=== PATIENT | male | born 1955 | race Caucasian/White ===

== ENCOUNTER 2020-04-09 13:41 | Outpatient (CLI) | payer MEDICARE, OTHER, SELFPAY ==
--- NOTE | 2020-04-09 13:53 | USCV_ITS ---
Davion Marley Age: 65 Gender: M : 1955 Exam Date: 04/09/2020 14:05 Ordering Phys: Aisha Pagan MD Technologist: Alejandro Betancur Exam Location: [facility] – [place] Indication: LT LEG SWELLING HISTORY: Lower extremity edema. PROCEDURES: Venous duplex imaging was performed in only the left lower extremity. The following venous structures were evaluated: common femoral vein, profunda vein, proximal portion of the greater saphenous vein, superficial femoral vein, and the popliteal vein. In addition, the posterior tibial and peroneal trunk were evaluated. On the left side, the common femoral, superficial femoral, profunda femoral, popliteal, posterior tibial, greater saphenous veins, and the peroneal trunk were identified and interrogated in the standard fashion. These veins were found to be easily compressible with spontaneous blood flow. No evidence of insufficiency or thrombus noted. FINDINGS: Normal 2-D Doppler and augmentation and compressibility throughout the lower extremity venous structures. Additional imaging through the proximal calf veins also reveals no thrombus. Limited evaluation of the greater saphenous vein is patent with no thrombus.. CONCLUSIONS No evidence of left lower extremity DVT. Perico Mayo MD (Electronically Signed) Final Date: 09 April 2020 16:07 S
== END 2020-04-09 13:42 | disposition home or self-care (01) ==
PROVIDERS: Visit Provider Family Medicine
DX: M79.89 Other specified soft tissue disorders (principal)
CPT/HCPCS: 93971

== ENCOUNTER → 2020-04-29 12:59 | Outpatient (BNVA) | payer MEDICARE, OTHER, SELFPAY | PROVIDERS: PCP Family Medicine; Referring Provider Family Medicine; Visit Provider Urology | DX: N30.00 Acute cystitis without hematuria (principal); R97.20 Elevated prostate specific antigen [PSA] | CPT/HCPCS: 81001; 84153 ==

== ENCOUNTER 2021-11-03 11:20 | Emergency (ER) | payer MEDICARE, OTHER, SELFPAY ==
[2021-11-03 12:48] VITALS: BP 202/38; PULSE 79; RESP 16; TEMP 36.8; O2SAT 92
--- NOTE | 2021-11-03 15:01 | USCV_ITS ---
Davion Marley Age: 66 Gender: M : 1955 Exam Date: 11/03/2021 15:12 Ordering Phys: rAcelia Degroot Technologist: KATIUSKA Exam Location: [facility] – [place] Indication: lt leg pain swelling HISTORY: Lower extremity swelling. PROCEDURES: Venous duplex imaging was performed in only the left lower extremity. The following venous structures were evaluated: common femoral vein, profunda vein, proximal portion of the greater saphenous vein, superficial femoral vein, and the popliteal vein. In addition, the posterior tibial and peroneal trunk were evaluated. FINDINGS: Normal 2-D Doppler and augmentation and compressibility throughout the lower extremity venous structures. Additional imaging through the proximal calf veins also reveals no thrombus. Limited evaluation of the greater saphenous vein is patent with no thrombus.. CONCLUSIONS No evidence of left lower extremity DVT. Perico Mayo MD (Electronically Signed) Final Date: 03 November 2021 15:41 S
--- NOTE | 2021-11-03 15:01 | W.ED.EXTPRO ---
Documented by User: MACK Cornejo 11/03/21 17:11 HPI - Extremity Problem General: Chief complaint: Wound/Laceration Stated complaint: PCP SENT OVER FOR IV ANTIBIOTIC Time Seen by Provider: 11/03/21 14:49 Source: patient Mode of arrival: ambulatory Limitations: no limitations History of Present Illness: Patient is a nice 66-year-old male who presents to ED today with complaint of left lower leg swelling and redness. Patient states he began noticing redness about 2 weeks ago. He states he was seen by his PCP Dr. Aisha Pagan and prescribed Keflex on 10/25. He states redness and swelling at that time was just below his knee. He states he has finished antibiotics and redness continues to spread-now affecting his distal thigh. He has not been running any fevers. Patient does have chronic lower extremity edema that is treated with Lasix. Complaint: extremity pain and extremity swelling Onset (ago): week(s) Location: left and lower extremity Radiation: none Relieving factors: nothing Exacerbating factors: nothing Associated symptoms: Reports no associated symptoms; Deny chest pain or fever(s) Review of Systems Const: Denies: fever(s), chills, body aches, fatigue or malaise Card: Reports: edema and swelling of feet/ankles; Denies: chest pain or palpitations Resp: Denies: dyspnea Musc: Reports: extremity pain and extremity swelling Neuro: Denies: numbness in extremities, weakness in extremities or sensory changes [facility] ED PFSH: Medical History (Updated 11/03/21 @ 17:09 by MACK Cornejo) Acute cystitis Elevated PSA Transient related to acute cystitis. Return to normal after treatment April 2020. Surgical History S/P tendon repair Right Leg Family History Family/Other Cancer Social History Smoking and tobacco status: never smoked Alcohol intake: never Adopted: No Caregiver/support person: No Lives independently: No Household members: spouse Marital status: Current occupational status: retired Physical Exam Const: COMMON NORMALS: no acute distress, patient oriented x3, no limitations and alert GENERAL APPEARANCE: cooperative NUTRITIONAL APPEARANCE: obese morbidly obese ORIENTATION/CONSCIOUSNESS: Yes awake, Yes oriented to person, Yes oriented to place and Yes oriented to time HENMT: COMMON NORMALS: normocephalic and atraumatic HEAD & SCALP: normocephalic and atraumatic Resp: COMMON NORMALS: normal respiratory effort and clear to auscultation bilaterally AUSCULTATION: clear to auscultation bilaterally Cardio: COMMON NORMALS: regular rate and regular rhythm RATE: regular rate RHYTHM: regular rhythm Extremity: OTHER: bilateral L>R pitting edema; states L LE is at baseline; patient has cellulitic appearing changes and fairly significant swelling to R LE extending from lower thigh distally; DP/PT pulses intact with normal cap refill Neuro: COMMON NORMALS: patient oriented x3, moves all extremities, no focal motor deficits, no sensory deficits noted and gait normal SENSORIUM/ORIENTATION: Yes alert, Yes oriented to person, Yes oriented to place and Yes oriented to time Skin: NARRATIVE SKIN EXAM: see extremity assessment for pertinent skin findings Course Vital Signs: Vital signs: Vital Signs Temperature 98.3 F 11/03/21 12:48 Pulse Rate 79 11/03/21 12:48 Respiratory Rate 16 11/03/21 12:48 Blood Pressure 202/38 11/03/21 12:48 Pulse Oximetry 92 11/03/21 12:48 MDM - Extremity (Nontraumatic) Medical Decision Making Patient here with a fairly significant cellulitis of his left lower extremity. He has finished a round of Keflex without much improvement. Clinically patient appears well. He is not tachycardic or febrile. He has a normal white count at 8.2. CRP is mildly elevated at 13.3. We currently do not have any hospital beds available. I had Dr. Reyes also evaluate patient and he feels patient is stable to be discharged home with oral clindamycin with strict observation of symptoms and if redness/swelling worsens in any way he needs to return to the ED immediately for hospitalization. Lab Data I reviewed the patient's lab results. : 11/03/21 15:30 11/03/21 15:30 Laboratory Results WBC 8.2 10^3/uL (4.0-10.0) 11/03/21 15:30 RBC 5.13 10^6/uL (4.1-5.3) 11/03/21 15:30 Hgb 15.6 g/dL (11.7-16.6) 11/03/21 15:30 Hct 49.6 % (42.0-52.0) 11/03/21 15:30 MCV 96.7 fl (80-94) H 11/03/21 15:30 MCH 30.4 pg (28.0-34.0) 11/03/21 15: MCHC 31.5 g/dL (30.0-36.0) 11/03/21 15:30 RDW 13.6 % (12.1-15.1) 11/03/21 15:30 Plt Count 204 10^3/cmm (130-400) 11/03/21 15: MPV 9.6 fL (7.4-10.4) 11/03/21 15:30 Neut % (Auto) 59.5 % 11/03/21 15:30 Lymph % (Auto) 23.5 % 11/03/21 15:30 [facility] % (Auto) 14.5 % 11/03/21 15:30 Eos % (Auto) 1.8 % 11/03/21 15:30 Baso % (Auto) 0.2 % 11/03/21 15:30 Neut # (Auto) 4.87 10^3/uL (1.8-7.7) 11/03/21 15:30 Lymph # (Auto) 1.9 10^3/uL (0.8-4.8) 11/03/21 15:30 [facility] # (Auto) 1.2 10^3/uL (0.2-0.9) H 11/03/21 15:30 Eos # (Auto) 0.2 10^3/uL (0.0-0.8) 11/03/21 15:30 Baso # (Auto) 0.0 10^3/uL (0.0-0.1) 11/03/21 15: Nucleated RBC % (auto) 0 % 11/03/21 15: Nucleated RBCs # 0.0 /100WBC 11/03/21 15:30 Sodium 138 mmol/L (136-145) 11/03/21 15:30 Potassium 4.7 mmol/L (3.5-5.1) 11/03/21 15:30 Chloride 98 mmol/L (98-107) 11/03/21 15:30 Carbon Dioxide 29 mmol/L (22-29) 11/03/21 15:30 Anion Gap 15.7 (5-19) 11/03/21 15:30 BUN 15 mg/dL (8-23) 11/03/21 15:30 Creatinine 0.6 mg/dL (0.7-1.2) L 11/03/21 15:30 GFR Calculation 134.0 mL/min (90-130) H 11/03/21 15:30 Glucose 92 mg/dL (65-115) 11/03/21 15:30 Calculated Osmolality 286 mOsm/kg (285-295) 11/03/21 15:30 Calcium 9.5 mg/dL (8.5-10.5) 11/03/21 15:30 Total Bilirubin 0.3 mg/dL (0.15-1.2) 11/03/21 15:30 AST 24 U/L (0-40) 11/03/21 15:30 ALT 21 U/L (0-41) 11/03/21 15:30 Alkaline Phosphatase 78 IU/L (40-130) 11/03/21 15:30 C-Reactive Protein 13.3 mg/L (0.0-4.9) H 11/03/21 15:30 NT-Pro-B Natriuret Pep 30 pg/mL (0-125) 11/03/21 15:30 Total Protein 7.2 g/dL (6.6-8.7) 11/03/21 15:30 Albumin 3.8 g/dL (3.5-5.2) 11/03/21 15:30 Globulin 3.4 g/dL (1.3-4.6) 11/03/21 15:30 Imaging Data US venous L LE: Radiologist's impression: [address] [address] Ultrasound Report Signed Patient: Davion Marley V Unit #: [id number] : 1955 Age/Sex: 66 / M ADM Date: 11/03/21 Loc: ER Room/Bed: Attending Dr: Ordering Provider/Ordering MD: Arcelia Degroot Date of Service: 11/03/21 Procedure(s): [place] [id number] Accession Number(s): [id number] Report Number: [id number] ?Davion Marley ?Age:? ? 66 ? ? Gender: ? ? M ?:? ? 1955 ?Exam Date: ? ? 11/03/2021 15:12 ?Ordering Phys: ? ? Arcelia Degroot? PA ?Technologist:? ? ? CK2 ?[place]am [place]:? ? ? [facility] [place]:? ? [id number] ?Account Number: ? ? ? [id number] ?Indication:? ? ? lt leg pain swelling ?HISTORY: ?Lower extremity swelling. ?PROCEDURES: ?Venous duplex imaging was performed in only the left lower ?extremity. ?The following venous structures were evaluated: common femoral ?vein, profunda vein, proximal portion of the greater saphenous ?vein, superficial femoral vein, and the popliteal vein. ?In addition, the posterior tibial and peroneal trunk were ?evaluated. ?FINDINGS: ?Normal 2-D Doppler and augmentation and compressibility ?throughout the lower extremity venous structures.? Additional ?imaging through the proximal calf veins also reveals no ?thrombus.? Limited evaluation of the greater saphenous vein is ?patent with no thrombus.. ?CONCLUSIONS ?No evidence of left lower extremity DVT. ?Perico Mayo MD ?(Electronically Signed) ?Final Date:? ? ? 03 November 2021 ? 15:41 S Discharge Plan Discharge Patient Disposition: Home Clinical Impression: Cellulitis of left leg Condition: Stable Prescriptions: New clindamycin HCl 300 mg capsule 300 mg PO Q6H 7 Days Qty: 28 0RF No Action tamsulosin 0.4 mg capsule 0.4 mg PO DAILY 0RF furosemide 20 mg tablet 20 mg PO DAILY 0RF potassium chloride 10 mEq capsule, extended release 10 meq PO DAILY 0RF ascorbate calcium (vitamin C) 500 mg tablet 500 mg PO .Q2DAYS 0RF timolol 0.5 % drops 1 drop ophthalmic (eye) BID 0RF latanoprost 0.005 % drops 1 drop ophthalmic (eye) DAILY 0RF Metamucil (sugar) Powder 1 tbsp PO DAILY 0RF Complete Multivitamin Tablet 1 tab PO DAILY 0RF glucosamine-chondroitin 900 mg tablet PO 0RF Discharge Orders: Discharge ED (Routine); Ordered 11/03/21 Ordered By: Arcelia Degroot Referrals: Aisha Pagan MD [Primary Care Provider] - Patient Instructions: Cellulitis (ED) Activity Restrictions/Additional Instructions: As we discussed you need to fill antibiotics immediately and start them today. You need to keep a close eye on the redness and swelling and as we discussed if this worsens in any way you need to immediately return to the emergency department for reevaluation and probable hospitalization. Coding Level of Care Code ED Ordnance Artificer for Chg Fwd Exam Detailed Documented by User: Gregory Reyes DO 11/03/21 21:36 HPI - Extremity Problem General: Chief complaint: Wound/Laceration Stated complaint: PCP SENT OVER FOR IV ANTIBIOTIC Time Seen by Provider: 11/03/21 14:49 PFSH ED PFSH: Medical History (Updated 11/03/21 @ 17:09 by MACK Cornejo) Acute cystitis Elevated PSA Transient related to acute cystitis. Return to normal after treatment April 2020. Surgical History S/P tendon repair Right Leg Family History Family/Other Cancer Social History Smoking and tobacco status: never smoked Alcohol intake: never Adopted: No Caregiver/support person: No Lives independently: No Household members: spouse Marital status: Current occupational status: retired Course Consultations: Consultation #1: I was one of the emergency physicians on duty and this patient was presented to me by the advanced nurse practitioner. We reviewed the history and the current presentation. I also interviewed and evaluated the patient with Arcelia Degroot. The patient clinically looks stable. He has erythema of the left lower extremity which is somewhat serpiginous above the knee. There is no proximal lymphadenopathy or lymphangitis. He has normal range of motion. He does have swelling of the left lower extremity compared with that of the right. He has dry thickened and woody appearing skin of that extremity as well with some cracking and fissuring of the skin. Evaluation performed this evening reveals no evidence of DVT, laboratories are reassuring, his clinical appearance is reassuring. He apparently was on Keflex for period of time with nonresolution. I think he has a component of dependent edema as well as venous insufficiency which is contributed to his current condition. We reviewed treatment options both patient and spouse and given the current pandemic constraints it is reasonable for us to switch his antibiotic coverage and follow his clinical response. I agree with the plan of care as outlined and we also discussed return precautions in detail. Vital Signs: Vital signs: Vital Signs Temperature 98.3 F 11/03/21 12:48 Pulse Rate 79 11/03/21 12:48 Respiratory Rate 16 11/03/21 12:48 Blood Pressure 202/38 11/03/21 12:48 Pulse Oximetry 92 11/03/21 12:48 MDM - Extremity (Nontraumatic) Lab Data : 11/03/21 15:30 11/03/21 15:30 Laboratory Results WBC 8.2 10^3/uL (4.0-10.0) 11/03/21 15:30 RBC 5.13 10^6/uL (4.1-5.3) 11/03/21 15:30 Hgb 15.6 g/dL (11.7-16.6) 11/03/21 15:30 Hct 49.6 % (42.0-52.0) 11/03/21 15:30 MCV 96.7 fl (80-94) H 11/03/21 15:30 MCH 30.4 pg (28.0-34.0) 11/03/21 15:30 MCHC 31.5 g/dL (30.0-36.0) 11/03/21 15:30 RDW 13.6 % (12.1-15.1) 11/03/21 15:30 Plt Count 204 10^3/cmm (130-400) 11/03/21 15:30 MPV 9.6 fL (7.4-10.4) 11/03/21 15:30 Neut % (Auto) 59.5 % 11/03/21 15:30 Lymph % (Auto) 23.5 % 11/03/21 15:30 [facility] % (Auto) 14.5 % 11/03/21 15:30 Eos % (Auto) 1.8 % 11/03/21 15:30 Baso % (Auto) 0.2 % 11/03/21 15:30 Neut # (Auto) 4.87 10^3/uL (1.8-7.7) 11/03/21 15:30 Lymph # (Auto) 1.9 10^3/uL (0.8-4.8) 11/03/21 15:30 [facility] # (Auto) 1.2 10^3/uL (0.2-0.9) H 11/03/21 15:30 Eos # (Auto) 0.2 10^3/uL (0.0-0.8) 11/03/21 15:30 Baso # (Auto) 0.0 10^3/uL (0.0-0.1) 11/03/21 15:30 Nucleated RBC % (auto) 0 % 11/03/21 15:30 Nucleated RBCs # 0.0 /100WBC 11/03/21 15:30 Sodium 138 mmol/L (136-145) 11/03/21 15:30 Potassium 4.7 mmol/L (3.5-5.1) 11/03/21 15:30 Chloride 98 mmol/L (98-107) 11/03/21 15:30 Carbon Dioxide 29 mmol/L (22-29) 11/03/21 15:30 Anion Gap 15.7 (5-19) 11/03/21 15:30 BUN 15 mg/dL (8-23) 11/03/21 15:30 Creatinine 0.6 mg/dL (0.7-1.2) L 11/03/21 15:30 GFR Calculation 134.0 mL/min (90-130) H 11/03/21 15:30 Glucose 92 mg/dL (65-115) 11/03/21 15:30 Calculated Osmolality 286 mOsm/kg (285-295) 11/03/21 15:30 Calcium 9.5 mg/dL (8.5-10.5) 11/03/21 15:30 Total Bilirubin 0.3 mg/dL (0.15-1.2) 11/03/21 15:30 AST 24 U/L (0-40) 11/03/21 15:30 ALT 21 U/L (0-41) 11/03/21 15:30 Alkaline Phosphatase 78 IU/L (40-130) 11/03/21 15:30 C-Reactive Protein 13.3 mg/L (0.0-4.9) H 11/03/21 15:30 NT-Pro-B Natriuret Pep 30 pg/mL (0-125) 11/03/21 15:30 Total Protein 7.2 g/dL (6.6-8.7) 11/03/21 15:30 Albumin 3.8 g/dL (3.5-5.2) 11/03/21 15:30 Globulin 3.4 g/dL (1.3-4.6) 11/03/21 15:30 Discharge Plan Discharge Patient Disposition: Home Clinical Impression: Cellulitis of left leg Condition: Stable Prescriptions: New clindamycin HCl 300 mg capsule 300 mg PO Q6H 7 Days Qty: 28 0RF No Action tamsulosin 0.4 mg capsule 0.4 mg PO DAILY 0RF furosemide 20 mg tablet 20 mg PO DAILY 0RF potassium chloride 10 mEq capsule, extended release 10 meq PO DAILY 0RF ascorbate calcium (vitamin C) 500 mg tablet 500 mg PO .Q2DAYS 0RF timolol 0.5 % drops 1 drop ophthalmic (eye) BID 0RF latanoprost 0.005 % drops 1 drop ophthalmic (eye) DAILY 0RF Metamucil (sugar) Powder 1 tbsp PO DAILY 0RF Complete Multivitamin Tablet 1 tab PO DAILY 0RF glucosamine-chondroitin 900 mg tablet PO 0RF Discharge Orders: Discharge ED (Routine); Ordered 11/03/21 Ordered By: Arcelia Degroot Referrals: Aisha Pagan MD [Primary Care Provider] - Patient Instructions: Cellulitis (ED) Activity Restrictions/Additional Instructions: As we discussed you need to fill antibiotics immediately and start them today. You need to keep a close eye on the redness and swelling and as we discussed if this worsens in any way you need to immediately return to the emergency department for reevaluation and probable hospitalization. Coding Level of Care Code ED Ordnance Artificer for Sylvain Fwbetzy Exam Detailed
[2021-11-03 16:03] LABS: Basophils % 0.2 %; Eosinophils # 0.2 10^3/uL (0.0-0.8); Eosinophils % 1.8 %; Hematocrit 49.6 % (42.0-52.0); Hemoglobin 15.6 g/dL (11.7-16.6); Lymphocytes # 1.9 10^3/uL (0.8-4.8); Lymphocytes % 23.5 %; Mean Corpuscular HGB Conc 31.5 g/dL (30.0-36.0); Mean Corpuscular Hemoglobin 30.4 pg (28.0-34.0); Mean Corpuscular Volume 96.7 fl (80-94); Mean Platelet Volume 9.6 fL (7.4-10.4); Monocytes # 1.2 10^3/uL (0.2-0.9); Monocytes % 14.5 %; Neutrophils # 4.87 10^3/uL (1.8-7.7); Neutrophils % 59.5 %; Nucleated Red Blood Cells % 0 %; Platelet Count 204 10^3/cmm (130-400); Red Blood Count 5.13 10^6/uL (4.1-5.3); Red Cell Distribution Width 13.6 % (12.1-15.1); White Blood Count 8.2 10^3/uL (4.0-10.0)
[2021-11-03 16:54] LABS: Alanine Aminotransferase 21 U/L (0-41); Albumin Level 3.8 g/dL (3.5-5.2); Alkaline Phosphatase 78 IU/L (40-130); Blood Urea Nitrogen 15 mg/dL (8-23); C Reactive Protein 13.3 mg/L (0.0-4.9); Calcium 9.5 mg/dL (8.5-10.5); Carbon Dioxide 29 mmol/L (22-29); Chloride 98 mmol/L (98-107); Globulin 3.4 g/dL (1.3-4.6); Glucose 92 mg/dL (65-115); NT Pro B Type Natriuretic Pept 30 pg/mL (0-125); Osmolality Calculated 286 mOsm/kg (285-295); Sodium 138 mmol/L (136-145); Total Bilirubin 0.3 mg/dL (0.15-1.2); Total Protein 7.2 g/dL (6.6-8.7)
[2021-11-03 16:58] LABS: Anion Gap 15.7 (5-19); Aspartate Amino Transferase 24 U/L (0-40); Potassium 4.7 mmol/L (3.5-5.1)
== END 2021-11-03 17:21 | disposition home or self-care (01) ==
PROVIDERS: Emergency Provider Physician Assistant; PCP Family Medicine
DX: L03.116 Cellulitis of left lower limb (principal); M79.89 Other specified soft tissue disorders
CPT/HCPCS: 80053; 83880; 85025; 86140; 87040; 93971; 99282

== ENCOUNTER 2021-11-07 09:49 | Emergency (ER) | payer MEDICARE, OTHER, SELFPAY ==
[2021-11-07 10:50] VITALS: BP 146/78; PULSE 77; RESP 19; TEMP 37; O2SAT 91; BMI 45.9
--- NOTE | 2021-11-07 12:31 | W.ED.EXTPRO ---
HPI - Extremity Problem General: Chief complaint: Extremity Problem,Nontraumatic Stated complaint: LEFT LEG REDNESS Time Seen by Provider: 11/07/21 12:30 Source: patient Mode of arrival: ambulatory Limitations: no limitations History of Present Illness: 58-year-old male presents emergency room complaining of left leg pain and swelling. He has been seen here last week there is a concern about cellulitis he was switched to clindamycin at that time his white count was normal his CRP was elevated minimally elevated a lot of the changes in the left lower leg were thought to be chronic. He had previously been treated with Keflex he was switched to clindamycin. Has not had any fever sweats chills denies any chest pain. He was previously ultrasounded for DVT in the left leg which was also negative. MD Complaint: extremity swelling Onset (ago): week(s) Pain Consistency: constant Location: left and lower extremity Quality: aching Radiation: none Relieving factors: nothing Exacerbating factors: nothing Associated symptoms: Deny arthralgias, chest pain, fever(s), myalgias, rash, short of breath or other Review of Systems Const: Denies: fever(s) ENMT: Denies: throat pain, ear or mastoid pain, nasal discharge or nasal congestion Card: Denies: chest pain Resp: Denies: dyspnea, productive cough or non-productive cough GI: Denies: abdominal pain, nausea, vomiting, hematemesis, diarrhea or constipation Skin/Breast: Denies: rash PFSH ED PFSH: Medical History Acute cystitis Elevated PSA Transient related to acute cystitis. Return to normal after treatment April 2020. Surgical History S/P tendon repair Right Leg Family History Family/Other Cancer Social History Smoking and tobacco status: never smoked Alcohol intake: never Adopted: No Caregiver/support person: No Lives independently: No Household members: spouse Marital status: Current occupational status: retired Physical Exam Const: COMMON NORMALS: no acute distress GENERAL APPEARANCE: cooperative and comfortable ORIENTATION/CONSCIOUSNESS: Yes awake, Yes oriented to person, Yes oriented to place and Yes oriented to time HENMT: COMMON NORMALS: normocephalic, atraumatic and hearing grossly normal bilaterally HEAD & SCALP: normocephalic and atraumatic Neck/C-Spine: COMMON NORMALS: no JVD Resp: COMMON NORMALS: normal respiratory effort, No retractions, No use of accessory muscles and clear to auscultation bilaterally AUSCULTATION: clear to auscultation bilaterally Cardio: COMMON NORMALS: no JVD, regular rate, regular rhythm and No murmurs present (Cardio) RATE: regular rate RHYTHM: regular rhythm GI: COMMON NORMALS: Soft to palpation and No hepatosplenomegaly present AUSCULTATION: Yes normoactive bowel sounds PALPATION: Yes Soft to palpation, No Tenderness to palpation present (GI), No Guarding due to palpation present (GI) and Yes No hepatosplenomegaly present Extremity: GENERAL: Yes edema OTHER: Redness and erythema of the left lower leg there is some excoriated areas with dry eschars in place no active drainage. The skin is violaceous in color to 3+ pitting edema is not warm to the touch. Neuro: SENSORIUM/ORIENTATION: Yes oriented to person, Yes oriented to place and Yes oriented to time Skin: COMMON NORMALS: no rashes or lesions noted GENERAL SKIN EXAM: no rashes or lesions noted Course Vital Signs: Vital signs: Vital Signs Temperature 98.6 F 11/07/21 10:50 Pulse Rate 73 11/07/21 14:07 Respiratory Rate 163 H 11/07/21 14:07 Blood Pressure 153/88 11/07/21 14:07 Pulse Oximetry 92 11/07/21 14:07 MDM - Extremity (Nontraumatic) Medical Decision Making CRP is decreased by half since he was last seen. His white count is normal. There is no evidence of active infection at this point is a recurrent antibiotic he is taking seems to be working well would complete the course of antibiotic follow-up with his primary care doctor in the next 2 to 3 days he like to return to work probably show least a couple more days of antibiotics as any worsening problem return to the emergency room Medical Records I reviewed the patient's medical records. Lab Data I reviewed the patient's lab results. : 11/07/21 12:54 11/07/21 12:54 Laboratory Results WBC 8.7 10^3/uL (4.0-10.0) 11/07/21 12:54 RBC 5.31 10^6/uL (4.1-5.3) H 11/07/21 12:54 Hgb 15.7 g/dL (11.7-16.6) 11/07/21 12:54 Hct 49.9 % (42.0-52.0) 11/07/21 12:54 MCV 94.0 fl (80-94) 11/07/21 12:54 MCH 29.6 pg (28.0-34.0) 11/07/21 12:54 MCHC 31.5 g/dL (30.0-36.0) 11/07/21 12:54 RDW 13.4 % (12.1-15.1) 11/07/21 12:54 Plt Count 215 10^3/cmm (130-400) 11/07/21 12:54 MPV 9.6 fL (7.4-10.4) 11/07/21 12:54 Neut % (Auto) 63.2 % 11/07/21 12:54 Lymph % (Auto) 20.3 % 11/07/21 12:54 [place] % (Auto) 13.9 % 11/07/21 12:54 Eos % (Auto) 1.7 % 11/07/21 12:54 Baso % (Auto) 0.7 % 11/07/21 12:54 Neut # (Auto) 5.47 10^3/uL (1.8-7.7) 11/07/21 12:54 Lymph # (Auto) 1.8 10^3/uL (0.8-4.8) 11/07/21 12:54 [place] # (Auto) 1.2 10^3/uL (0.2-0.9) H 11/07/21 12:54 Eos # (Auto) 0.2 10^3/uL (0.0-0.8) 11/07/21 12:54 Baso # (Auto) 0.1 10^3/uL (0.0-0.1) 11/07/21 12:54 Nucleated RBC % (auto) 0 % 11/07/21 12:54 Nucleated RBCs # 0.0 /100WBC 11/07/21 12:54 Sodium 137 mmol/L (136-145) 11/07/21 12:54 Potassium 4.5 mmol/L (3.5-5.1) 11/07/21 12:54 Chloride 100 mmol/L (98-107) 11/07/21 12:54 Carbon Dioxide 27 mmol/L (22-29) 11/07/21 12:54 Anion Gap 14.5 (5-19) 11/07/21 12:54 BUN 17 mg/dL (8-23) 11/07/21 12:54 Creatinine 0.7 mg/dL (0.7-1.2) 11/07/21 12:54 GFR Calculation 112.1 mL/min (90-130) 11/07/21 12:54 Glucose 93 mg/dL (65-115) 11/07/21 12:54 Calculated Osmolality 285 mOsm/kg (285-295) 11/07/21 12:54 Calcium 9.3 mg/dL (8.5-10.5) 11/07/21 12:54 Total Bilirubin 0.3 mg/dL (0.15-1.2) 11/07/21 12:54 AST 19 U/L (0-40) 11/07/21 12:54 ALT 21 U/L (0-41) 11/07/21 12:54 Alkaline Phosphatase 92 IU/L (40-130) 11/07/21 12:54 C-Reactive Protein 6.1 mg/L (0.0-4.9) H 11/07/21 12:54 Total Protein 7.4 g/dL (6.6-8.7) 11/07/21 12:54 Albumin 3.9 g/dL (3.5-5.2) 11/07/21 12:54 Globulin 3.5 g/dL (1.3-4.6) 11/07/21 12:54 Discharge Plan Discharge Patient Disposition: Home Clinical Impression: Cellulitis of left leg Condition: Stable Prescriptions: No Action tamsulosin 0.4 mg capsule 0.4 mg PO DAILY 0RF furosemide 20 mg tablet 20 mg PO DAILY 0RF potassium chloride 10 mEq capsule, extended release 10 meq PO DAILY 0RF ascorbate calcium (vitamin C) 500 mg tablet 500 mg PO .Q2DAYS 0RF timolol 0.5 % drops 1 drop ophthalmic (eye) BID 0RF latanoprost 0.005 % drops 1 drop ophthalmic (eye) DAILY 0RF Metamucil (sugar) Powder 1 tbsp PO DAILY 0RF Complete Multivitamin Tablet 1 tab PO DAILY 0RF glucosamine-chondroitin 900 mg tablet PO 0RF clindamycin HCl 300 mg capsule 300 mg PO Q6H 7 Days Qty: 28 0RF Discharge Orders: Discharge ED (Routine); Ordered 11/07/21 Ordered By: Duc Carranza Referrals: Aisha Pagan MD [Primary Care Provider] - Discharge Diet: Usual diet Discharge Activity: Resume usual activity Patient Instructions: Opioid Safety Activity Restrictions/Additional Instructions: Continue previously prescribed antibiotic follow-up with your primary care doctor. Coding Level of Care Code ED Battery Service Technician for Sylvain Denson
[2021-11-07 13:09] LABS: Basophils # 0.1 10^3/uL (0.0-0.1); Basophils % 0.7 %; Eosinophils # 0.2 10^3/uL (0.0-0.8); Eosinophils % 1.7 %; Hematocrit 49.9 % (42.0-52.0); Hemoglobin 15.7 g/dL (11.7-16.6); Lymphocytes # 1.8 10^3/uL (0.8-4.8); Lymphocytes % 20.3 %; Mean Corpuscular HGB Conc 31.5 g/dL (30.0-36.0); Mean Corpuscular Hemoglobin 29.6 pg (28.0-34.0); Mean Platelet Volume 9.6 fL (7.4-10.4); Monocytes # 1.2 10^3/uL (0.2-0.9); Monocytes % 13.9 %; Neutrophils # 5.47 10^3/uL (1.8-7.7); Neutrophils % 63.2 %; Nucleated Red Blood Cells % 0 %; Platelet Count 215 10^3/cmm (130-400); Red Blood Count 5.31 10^6/uL (4.1-5.3); Red Cell Distribution Width 13.4 % (12.1-15.1); White Blood Count 8.7 10^3/uL (4.0-10.0)
[2021-11-07 13:39] LABS: Alanine Aminotransferase 21 U/L (0-41); Albumin Level 3.9 g/dL (3.5-5.2); Alkaline Phosphatase 92 IU/L (40-130); Anion Gap 14.5 (5-19); Aspartate Amino Transferase 19 U/L (0-40); Blood Urea Nitrogen 17 mg/dL (8-23); C Reactive Protein 6.1 mg/L (0.0-4.9); Calcium 9.3 mg/dL (8.5-10.5); Carbon Dioxide 27 mmol/L (22-29); Chloride 100 mmol/L (98-107); Globulin 3.5 g/dL (1.3-4.6); Glomerular Filtration Rate 112.1 mL/min (90-130); Glucose 93 mg/dL (65-115); Osmolality Calculated 285 mOsm/kg (285-295); Potassium 4.5 mmol/L (3.5-5.1); Sodium 137 mmol/L (136-145); Total Bilirubin 0.3 mg/dL (0.15-1.2); Total Protein 7.4 g/dL (6.6-8.7)
[2021-11-07 14:07] VITALS: BP 153/88; PULSE 73; RESP 163; O2SAT 92
== END 2021-11-07 14:07 | disposition home or self-care (01) ==
PROVIDERS: Physician Assistant; Emergency Provider Family Medicine; PCP Family Medicine
DX: L03.116 Cellulitis of left lower limb (principal); Z79.2 Long term (current) use of antibiotics
CPT/HCPCS: 80053; 85025; 86140; 87040; 99281

== ENCOUNTER 2021-11-30 07:55 | Outpatient (RCR) | payer MEDICARE, OTHER, SELFPAY | END 2021-12-05 23:59 | disposition home or self-care (01) | LOC: SPT 07:55 | PROVIDERS: PCP Family Medicine; Referring Provider Family Medicine; Visit Provider Family Medicine | DX: I87.8 Other specified disorders of veins (principal); E66.01 Morbid (severe) obesity due to excess calories; L03.119 Cellulitis of unspecified part of limb | CPT/HCPCS: 29581; 97140; 97161 ==

== ENCOUNTER 2021-12-06 06:00 | Outpatient (RCR) | payer MEDICARE, OTHER, SELFPAY | END 2021-12-28 23:59 | disposition home or self-care (01) | LOC: SPT 06:00 | PROVIDERS: PCP Family Medicine; Referring Provider Family Medicine; Visit Provider Family Medicine | DX: I87.8 Other specified disorders of veins (principal) | CPT/HCPCS: 29581; 97140 ==

== ENCOUNTER 2022-04-07 18:48 | Emergency (ER) | payer OTHER, MEDICARE, SELFPAY ==
[2022-04-07 18:58] VITALS: BP 139/85; PULSE 77; RESP 18; TEMP 37.3; O2SAT 91; BMI 41.8
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
[2022-04-07] MEDS: HYDROcodone-acetaminophen 7.5-325 mg Tablet 1 TAB PO (22:27)
[2022-04-07 23:15] VITALS: BP 133/96; PULSE 73; RESP 19; TEMP 37.1; O2SAT 92
[2022-04-07] MEDS: tetanus-dipt-pertussis 0.5 mL SDV IM (23:19)
[2022-04-07] MEDS: neomycin-poly-bacitracin oint 0.9 gm Pkt 1 APPLIC TOPICAL (23:21)
[2022-04-07 23:29] VITALS: BP 133/96; PULSE 73; RESP 19; TEMP 37.1; O2SAT 92
== END 2022-04-07 23:31 | disposition home or self-care (01) ==
PROVIDERS: Emergency Provider Physician Assistant; PCP Family Medicine
DX: S51.812A Laceration without foreign body of left forearm, initial encounter (principal); V89.2XXA Person injured in unspecified motor-vehicle accident, traffic, initial encounter; Z23 Encounter for immunization
CPT/HCPCS: 12001; 73090; 90471; 90715; 99283

== ENCOUNTER 2022-04-09 07:04 | Inpatient (IN) | payer MEDICARE, SELFPAY ==
[2022-04-09] VITALS (102 sets, daily range): BP systolic 61–163; BP diastolic 39–95; PULSE 0–114; RESP 12–40; TEMP 36.6–37.7; O2SAT 84–99; BMI 45.9
--- NOTE | 2022-04-09 07:16 | CTR_ITS ---
PROCEDURE INFORMATION: Exam: CTA Chest With Contrast Exam date and time: 04/09/2022 8:17 AM Age: 67 years old Clinical indication: Other: Unresponsive TECHNIQUE: Imaging protocol: Computed tomographic angiography of the chest with contrast. 3D rendering (Not supervised by radiologist): MIP and/or 3D reconstructed images were created by the technologist. Radiation optimization: All CT scans at this facility use at least one of these dose optimization techniques: automated exposure control; mA and/or kV adjustment per patient size (includes targeted exams where dose is matched to clinical indication); or iterative reconstruction. Contrast material: OMNI 350; Contrast volume: 95 ml; Contrast route: INTRA-ARTICULAR (ARTHROGRAM); COMPARISON: CR (CHEST, ) 04/09/2022 7:49 AM RADIATION DOSE METRICS: Total DLP (mGy-cm): 2237.58 FINDINGS: Tubes, catheters and devices: A nasogastric tube is present with the tip in the stomach. An endotracheal tube is present in satisfactory position. Pulmonary arteries: Normal. No pulmonary emboli. Aorta: There is mild calcification of the aorta. There is no thoracic aortic aneurysm. Lungs: There is bilateral atelectasis especially in the lower lobes and on the left side. There are multiple benign calcified granulomas in the left lung. Pleural spaces: Unremarkable. No pneumothorax. No pleural effusion. Heart: The heart is not enlarged. There is calcification of the coronary arteries. Lymph nodes: Benign calcified lymph nodes are present in the mediastinum. Bones/joints: Chronic degenerative changes are present in the spine. Soft tissues: Unremarkable. PROCEDURE INFORMATION: Exam: CT Abdomen And Pelvis With Contrast Exam date and time: 04/09/2022 8:17 AM Age: 67 years old Clinical indication: Other: Unresponsive TECHNIQUE: Imaging protocol: Computed tomography of the abdomen and pelvis with contrast. Radiation optimization: All CT scans at this facility use at least one of these dose optimization techniques: automated exposure control; mA and/or kV adjustment per patient size (includes targeted exams where dose is matched to clinical indication); or iterative reconstruction. Contrast material: OMNI 350; Contrast volume: 95 ml; Contrast route: INTRA-ARTICULAR (ARTHROGRAM); COMPARISON: CR (CHEST, ) 04/09/2022 7:49 AM RADIATION DOSE METRICS: Total DLP (mGy-cm): 2237.58 FINDINGS: Tubes, catheters and devices: A nasogastric tube is present in the stomach. Liver: Normal. No mass. Gallbladder and bile ducts: Cholelithiasis. Normal bile ducts. Pancreas: Normal. No ductal dilation. Spleen: Normal. No splenomegaly. Adrenal glands: Normal. No mass. Kidneys and ureters: Normal. No hydronephrosis. Stomach and bowel: Unremarkable. No obstruction. No mucosal thickening. Appendix: No evidence of appendicitis. Intraperitoneal space: Unremarkable. No free air. No significant fluid collection. Vasculature: Unremarkable. No abdominal aortic aneurysm. Lymph nodes: Unremarkable. No enlarged lymph nodes. Urinary bladder: The urinary bladder is collapsed around a Norton catheter. Reproductive: Unremarkable as visualized. Bones/joints: Chronic degenerative changes are present in the spine. Soft tissues: Unremarkable. CT/CT angio chest w abd pel w con IMPRESSION: 1. No evidence of pulmonary embolus or aortic aneurysm/dissection. 2. Bilateral atelectasis greater on the left side. 3. Coronary artery calcification. 4. Benign calcified granulomas disease. IMPRESSION: 1. No acute abnormality. 2. Cholelithiasis.
--- NOTE | 2022-04-09 07:16 | CTR_ITS ---
PROCEDURE INFORMATION: Exam: CT Head Without Contrast Exam date and time: 04/09/2022 8:08 AM Age: 67 years old Clinical indication: Unresponsive TECHNIQUE: Imaging protocol: Computed tomography of the head without contrast. Radiation optimization: All CT scans at this facility use at least one of these dose optimization techniques: automated exposure control; mA and/or kV adjustment per patient size (includes targeted exams where dose is matched to clinical indication); or iterative reconstruction. COMPARISON: No relevant prior studies available. RADIATION DOSE METRICS: Total DLP (mGy-cm): 1380.49 FINDINGS: Brain: No acute intracranial hemorrhage. No mass, mass effect or midline shift. There is mild patchy subcortical and periventricular hypodensity, most commonly associated with small vessel ischemic disease of indeterminate age. The posterior fossa is grossly unremarkable; however, it is partially obscurred by beam hardening artifact. Cerebral ventricles: The ventricles are normal in configuration. Paranasal sinuses: There is mild mucosal thickening in the ethmoid, sphenoid and maxillary sinuses. Mastoid air cells: No mastoid effusion. Bones/joints: No acute fracture is seen. Soft tissues: Mild frontal scalp soft tissue swelling. Vasculature: There is no evidence of acute large vessel infarct. Orbits: The visualized orbits are unremarkable. CT/CT head wo con* [id number] IMPRESSION: 1. Mild presumed small vessel ischemic disease of indeterminate age. 2. No acute intracranial abnormality.
--- NOTE | 2022-04-09 07:16 | XRR_ITS ---
PROCEDURE INFORMATION: Exam: XR Chest Exam date and time: 04/09/2022 7:49 AM Age: 67 years old Clinical indication: Device placement; Other: Ett and ng placement TECHNIQUE: Imaging protocol: Radiologic exam of the chest. Views: 1 view. COMPARISON: No relevant prior studies available. FINDINGS: Tubes, catheters and devices: A nasogastric tube is present with the tip projecting in the stomach. An endotracheal tube is present with its tip 4 cm above the cooper. Lungs: There is bilateral atelectasis greater on the left side. Pleural spaces: Unremarkable. No pleural effusion. No pneumothorax. Heart/Mediastinum: Unremarkable. No cardiomegaly. Bones/joints: Unremarkable. XR/XR chest 1V portable [id number] IMPRESSION: 1. Satisfactory position of the endotracheal tube and nasogastric tube. 2. Poor inspiration with bilateral atelectasis.
--- NOTE | 2022-04-09 07:16 | CTR_ITS ---
PROCEDURE INFORMATION: Exam: CT Cervical Spine Without Contrast Exam date and time: 04/09/2022 8:11 AM Age: 67 years old Clinical indication: Other: Unresponsive TECHNIQUE: Imaging protocol: Computed tomography of the cervical spine without contrast. Radiation optimization: All CT scans at this facility use at least one of these dose optimization techniques: automated exposure control; mA and/or kV adjustment per patient size (includes targeted exams where dose is matched to clinical indication); or iterative reconstruction. COMPARISON: CT head wo con* [id number] 04/09/2022 8:08 AM RADIATION DOSE METRICS: Total DLP (mGy-cm): 1058.09 FINDINGS: The cervical lordosis is maintained. No prevertebral soft tissue swelling is seen. Gavg-ev-wdkaigvc degenerative disc disease in the cervical spine. No acute fracture is identified. The atlantoaxial interval and craniocervical junction are maintained. Small, scattered cervical lymph nodes are noted. CT/CT cervical spin wo con* [id number] IMPRESSION: 1. No acute cervical fracture. 2. Kerq-vy-nehfyvhw degenerative disc disease in the cervical spine. 3. Please see dedicated CTA of the chest, abdomen and pelvis for associated findings.
--- NOTE | 2022-04-09 07:17 | ECG_ITS ---
[facility] Test Date: 2022-04-09 Pat Name: Davion Marley Department: Room: ICU04 Gender: Male Control Room Supervisor: : [id number] Requested By: Bro Zaldivar Order Number: [id number] Anali MD: Wally Elizondo M.D. Measurements Intervals [place] Rate: 129 P: 56 ND: 162 QRS: 8 QRSD: 118 T: 16 QT: 327 QTc: 479 Interpretive Statements SINUS TACHYCARDIA WITH OCCASIONAL VENTRICULAR PREMATURE COMPLEXES MODERATE INTRAVENTRICULAR CONDUCTION DELAY [110+ ms QRS DURATION] ABNORMAL RHYTHM ECG No previous ECG available for comparison Electronically Signed On 04-10-2022 8:38:15 CDT by Wally Elizondo M.D. [email or web address]
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
[2022-04-09 07:27] LABS: Basophils % 0.3 %; Eosinophils % 0.1 %; Hematocrit 59.2 % (42.0-52.0); Lymphocytes # 2.2 10^3/uL (0.8-4.8); Lymphocytes % 18.4 %; Mean Corpuscular HGB Conc 30.4 g/dL (30.0-36.0); Mean Corpuscular Hemoglobin 29.9 pg (28.0-34.0); Mean Corpuscular Volume 98.2 fl (80-94); Mean Platelet Volume 10.3 fL (7.4-10.4); Monocytes % 8.3 %; Neutrophils # 8.59 10^3/uL (1.8-7.7); Neutrophils % 72.3 %; Nucleated Red Blood Cells % 0 %; Platelet Count 198 10^3/cmm (130-400); Red Blood Count 6.03 10^6/uL (4.1-5.3); Red Cell Distribution Width 14.4 % (12.1-15.1); White Blood Count 11.9 10^3/uL (4.0-10.0)
[2022-04-09] MEDS: propofol 1,000 MG/100 ML INJ 8.7 MG IV (07:27)
[2022-04-09 07:38] LABS: ABG PH Result 7.24 (7.35-7.45); Arterial Blood Gas Hematocrit 53.1 % (42-52); Base Excess ABG 1.1 mmol/L (-2.0-2.0); Blood Gas Allen Test Pos; Blood Gas Sample Type Arterial; HCO3 ABG 31.5 mmol/L (22-26); Ionized Calcium Level - ABG 1.2 mmol/L (1.1-1.4); Methemoglobin 0.7 % (0.4-1.5); Oxygen Saturation ABG 98.8; Potassium Level - ABG 4.5 mmol/L (3.5-5.0); Total Hemoglobin 17.3 g/dL (14-18)
[2022-04-09 07:39] LABS: ABG PCO2 73.4 mmHg (35-45)
[2022-04-09 07:40] LABS: Blood Gas Drawn By CAK; Blood Gas Sample Site LB; Blood Gas Tidal Volume 550; Blood Gas Vent Mode AC; Oxygen Device VENT
[2022-04-09 07:41] LABS: Blood Gas Operator Identificat CAK
[2022-04-09 07:56] LABS: Partial Thromboplastin Time 32.9 SECONDS (23.9-36.7)
[2022-04-09 07:59] LABS: Lactate (Lactic Acid level) 3.1 mmol/L (0.5-2.2)
[2022-04-09 08:17] LABS: SARS Covid-2 Antigen Negative (Negative)
[2022-04-09 08:18] LABS: Troponin(5th) Baseline 45 ng/L (0-15)
[2022-04-09 08:25] LABS: Alanine Aminotransferase 25 U/L (0-41); Albumin Level 4.4 g/dL (3.5-5.2); Alkaline Phosphatase 95 IU/L (40-130); Anion Gap 17.1 (5-19); Aspartate Amino Transferase 28 U/L (0-40); Blood Urea Nitrogen 21 mg/dL (8-23); Carbon Dioxide 30 mmol/L (22-29); Chloride 97 mmol/L (98-107); Free T4 Free Thyroxine 1.07 ng/dL (0.82-1.77); Globulin 4.1 g/dL (1.3-4.6); Glomerular Filtration Rate 83.7 mL/min (90-130); Glucose 222 mg/dL (65-115); Lipase 27 U/L (13-60); Magnesium 2.3 mg/dL (1.7-2.3); NT Pro B Type Natriuretic Pept 180 pg/mL (0-125); Osmolality Calculated 298 mOsm/kg (285-295); Potassium 5.1 mmol/L (3.5-5.1); Sodium 139 mmol/L (136-145); Thyroid Stimulating Hormone 6.62 uIU/mL (0.27-4.20); Total Bilirubin 0.3 mg/dL (0.15-1.2); Total Protein 8.5 g/dL (6.6-8.7)
[2022-04-09] MEDS: iohexol 350 mg/mL 100 mL Btl IV ×2 (08:28→11:29)
--- NOTE | 2022-04-09 08:47 | PC.NURSE ---
Pt arrived to ER in respiratory distress on non-rebreather. Pt was given 20mg etomidate at 0712 and 70mg rocuronium. Pt was intubated at 0713 - @ [facility]. Staff present: Christine Jordan RN, August Goldstein, RN, Myra De Jesus, RN, Uzair Avendano RN, Gigi Jalloh RT, Dr Zaldivar
[2022-04-09 08:53] LABS: Acetaminophen < 5.0 ug/mL (10-30); Alcohol Level < 10 mg/dL (0-10); Salicylate < 0.3 mg/dL (3-10)
[2022-04-09] MEDS: rocuronium 10 mg/mL INJ 5mL 50 MG (08:55)
[2022-04-09] MEDS: sodium chloride 0.9% 500 ML 999 ML IV (08:56)
--- NOTE | 2022-04-09 09:17 | ECG_ITS ---
[facility] Test Date: 2022-04-09 Pat Name: Davion Marley Department: Room: ICU04 Gender: Male Stock Holder: : [id number] Requested By: Bro Zaldivar Order Number: [id number] Anali MD: Wally Elizondo M.D. Measurements Intervals [place] Rate: 72 P: 59 MO: 164 QRS: -3 QRSD: 105 T: -14 QT: 385 QTc: 422 Interpretive Statements SINUS RHYTHM NONSPECIFIC T-WAVE ABNORMALITY Compared to ECG 04/09/2022 07:22:13 T-wave abnormality now present Sinus tachycardia no longer present Ventricular premature complex(es) no longer present Intraventricular conduction delay no longer present Electronically Signed On 04-10-2022 8:47:04 CDT by Wally Elizondo M.D. [email or web address]
[2022-04-09 09:31] LABS: Estmated Average Glucose 123; Hemoglobin A1C 5.9 % (4.0-6.0)
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
--- NOTE | 2022-04-09 09:38 | USCV_ITS ---
Davion Marley Age: 67 Gender: M : 1955 Exam Date: 04/09/2022 10:22 Ordering Phys: Issac [place] MD Technologist: Alejandro Betancur [place]am [place] [facility] [place] Indication: cva BP: 85 / 42 HR: 68 Rhythm: Sinus Technical Quality: Suboptimal MEASUREMENTS (Male / Female) Normal Values 2D ECHO LV Diastolic Diameter PLAX 4.7 cm 4.2 - 5.9 / 3.9 - 5.3 cm LV Systolic Diameter PLAX 3.2 cm IVS Diastolic Thickness 1.0 cm 0.6 - 1.0 / 0.6 - 0.9 cm IVS Systolic Thickness 1.8 cm LVPW Diastolic Thickness 1.6 cm 0.6 - 1.0 / 0.6 - 0.9 cm LVPW Systolic Thickness 1.8 cm LVOT Diameter 2.6 cm LV Ejection Fraction 2D Teich 61.8 % LV Ejection Fraction MOD 2C 58.4 % LV Ejection Fraction 2C AL 57.0 % LA Diameter 4.5 cm M-MODE Aortic Annulus Diameter 4.1 cm LA Ao Ratio MM 1.2 MV E Point Septal Separation 1.8 cm DOPPLER AV Peak Velocity 104.0 cm/s LVOT Peak Velocity 74.0 cm/s AV Area Cont Eq vti 4.8 cm squared AV Area Cont Eq pk 3.8 cm squared MV Area PHT 5.0 cm squared Mitral E to A Ratio 1.2 MV E' Velocity 30.5 cm/s Mitral E to MV E' Ratio 7.1 Mitral E to LV E' Lateral Ratio 8.4 Mitral E to LV E' Septal Ratio 6.1 TR Peak Velocity 250.3 cm/s TR Peak Gradient 25.1 mmHg TV Peak E Velocity 82.0 cm/s Right Atrial Pressure 3.0 mmHg Pulmonary Artery Systolic Pressu 28.1 mmHg FINDINGS Left Ventricle Normal left ventricular size, systolic function and wall thickness, with no regional wall motion abnormalities. Left ventricular ejection fraction is estimated at 60 %. Grade I/IV diastolic dysfunction (abnormal relaxation filling pattern), normal to mildly elevated filling pressures. Right Ventricle Normal right ventricular size and systolic function. Normal right ventricular systolic pressure. Right Atrium The right atrium is normal in size. Left Atrium The left atrium is normal in size. Mitral Valve Mitral valve not well visualized. No mitral valve stenosis. Aortic Valve Aortic valve not well visualized. No aortic valve stenosis. No aortic valve regurgitation. Tricuspid Valve Tricuspid valve not well visualized. Pulmonic Valve Pulmonic valve not well visualized. Pericardium Normal pericardium without effusion. Aorta Normal ascending aorta dimension. IVC Inferior vena cava not visualized. CONCLUSIONS Normal left ventricular size, systolic function and wall thickness, with no regional wall motion abnormalities. Left ventricular ejection fraction is estimated at 60 %. Grade I/IV diastolic dysfunction (abnormal relaxation filling pattern), normal to mildly elevated filling pressures. There are no prior echocardiogram studies to compare. Dr. Wally Elizondo MD (Electronically Signed) Final Date: 10 April 2022 08:21 S
[2022-04-09] MEDS: FUROsemide 10 mg/mL SDV 4mL 40 MG IVP ×2 (09:42→18:06)
--- NOTE | 2022-04-09 10:02 | XRR_ITS ---
PROCEDURE INFORMATION: Exam: XR Chest Exam date and time: 04/09/2022 10:04 AM Age: 67 years old Clinical indication: Central line placement. TECHNIQUE: Imaging protocol: Radiologic exam of the chest. Views: 1 view. COMPARISON: CR (CHEST, ) 04/09/2022 7:49 AM FINDINGS: Tubes, catheters and devices: Endotracheal tube with tip approximately 3.9 cm above the cooper. Left subclavian central venous access device with tip in the SVC. Nasogastric tube projects into the abdomen. Its tip is not included on the current study. Lungs: Consolidation in the medial and inferior chest, bilaterally, is approximately unchanged. Pleural spaces: No pleural effusion. No pneumothorax. Heart/Mediastinum: The cardiac silhouette is approximately unchanged. No gross evidence of pneumomediastinum. Bones/joints: No gross fracture. XR/XR chest 1V portable [id number] IMPRESSION: 1. Endotracheal tube with tip approximately 3.9 cm above the cooper. 2. Left subclavian central venous access device with tip in the SVC. 3. Nasogastric tube projects into the abdomen. Its tip is not included on the current study. 4. Consolidation in the medial and inferior chest, bilaterally, is approximately unchanged.
--- NOTE | 2022-04-09 11:22 | USR_ITS ---
PROCEDURE INFORMATION: Exam: US Duplex Lower Extremity Veins, Bilateral Exam date and time: 04/09/2022 12:11 PM Age: 67 years old Clinical indication: Screening exam. CVA. DVT. TECHNIQUE: Imaging protocol: Real-time Duplex ultrasound of the bilateral extremities with 2-D hinton scale, color Doppler flow and spectral waveform analysis with image documentation. Complete exam focused on the bilateral lower extremity veins. COMPARISON: CT angio chest w abd pel w con 04/09/2022 8:17 AM FINDINGS: The common femoral, femoral and popliteal veins are patent. There is appropriate compression. Doppler interogation reveals venous blood flow. US/[place] [id number] IMPRESSION: No evidence of deep venous thrombosis.
[2022-04-09] MEDS: pantoprazole 40 mg SDV IVP ×2 (11:56→22:58)
[2022-04-09] MEDS: enoxaparin 40 mg/0.4 mL Syringe SUBCUT (11:56)
[2022-04-09] MEDS: ipratropium-albuterol 3 mL Neb INHALATION ×4 (11:58→23:09)
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
[2022-04-09] MEDS: aspirin 81 mg EC Tablet PO (12:27)
[2022-04-09] MEDS: heparin drip 25,000 UNIT/500 ML PREMIX 29 UNIT IV (12:33)
[2022-04-09 12:57] LABS: ABG PCO2 41.5 mmHg (35-45); ABG PH Result 7.48 (7.35-7.45); Alveolar-Arterial Oxygen Gradi 24.8 mmHg (5-10); Arterial Blood Gas Hematocrit 49.4 % (42-52); Base Excess ABG 6.6 mmol/L (-2.0-2.0); Blood Gas Allen Test Pos; Blood Gas Operator Identificat CAK; Blood Gas Sample Site Radial, left; Blood Gas Sample Type Arterial; Blood Gas Tidal Volume 0.55; Carboxyhemoglobin 0.8 %THgb (0.4-20.1); HCO3 ABG 30.9 mmol/L (22-26); HGB O2 Sat 97.5 % (95-100); Ionized Calcium Level - ABG 1.2 mmol/L (1.1-1.4); Methemoglobin 0.9 % (0.4-1.5); Oxygen Device VENT; Oxygen Saturation ABG 99.2; Potassium Level - ABG 4.1 mmol/L (3.5-5.0); Total Hemoglobin 16.1 g/dL (14-18)
--- NOTE | 2022-04-09 13:17 | ECG_ITS ---
[facility] Test Date: 2022-04-09 Pat Name: Davion Marley Department: Room: 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 Measurements Intervals [place] Rate: 68 P: 56 ID: [id number] QRS: -10 QRSD: 105 T: -9 QT: 418 QTc: 445 Interpretive Statements SINUS RHYTHM Compared to ECG 04/09/2022 13:01:47 T-wave abnormality no longer present Electronically Signed On 04-10-2022 8:47:28 CDT by Wally Elizondo M.D. [email or web address]
[2022-04-09 13:48] LABS: Platelet Count 176 10^3/cmm (130-400)
[2022-04-09 14:28] LABS: Amphetamines Screen Urine Negative (Negative); Barbiturates Screen Urine Negative (Negative); Benzodiazepines Screen Urine Negative (Negative); Cocaine Screen Urine Negative (Negative); Opiate Screen Urine Negative (Negative); PCP Screen Urine Negative (Negative); THC Screen Urine Negative (Negative)
[2022-04-09 14:29] LABS: Bacteria Urine 1+ /hpf; Bilirubin Urine Neg (Negative); Blood Urine 2+ (Negative); Glucose Urine UA Norm (Normal); Ketones Urine Negative (Negative); Leukocyte Esterase Urine Negative (Negative); Nitrate Urine Negative (Negative); Protein Urine 3+ (Negative); Specific Gravity, Urine 1.025 (1.005-1.030); Squamous Epithelial Cell Urine RARE /hpf (0-5); Urine Appearance Hazy (CLEAR); Urine Color Yellow (Yellow); Urobilinogen Urine Norm (Negative); pH Urine 5 (5-7)
[2022-04-09 14:30] LABS: Add Urine Culture? No; Amorphous Sediment Urine 2+ /hpf; Coarse Granular Casts Urine 15-25 /lpf
[2022-04-09 18:52] LABS: Partial Thromboplastin Time 92.3 SECONDS (23.9-36.7)
[2022-04-09] MEDS: atorvastatin 40 mg Tablet PO (22:41)
[2022-04-10] VITALS (102 sets, daily range): BP systolic 108–176; BP diastolic 61–98; PULSE 63–106; RESP 14–50; TEMP 37.2–38.1; O2SAT 85–99
[2022-04-10] MEDS: propofol 1,000 MG/100 ML INJ 4.35 MG IV (00:49)
[2022-04-10 01:55] LABS: Basophils # 0.1 10^3/uL (0.0-0.1); Basophils % 0.4 %; Eosinophils % 0.3 %; Hematocrit 44.2 % (42.0-52.0); Hemoglobin 14.7 g/dL (11.7-16.6); Lymphocytes # 1.3 10^3/uL (0.8-4.8); Lymphocytes % 10.6 %; Mean Corpuscular HGB Conc 33.3 g/dL (30.0-36.0); Mean Corpuscular Hemoglobin 30.4 pg (28.0-34.0); Mean Corpuscular Volume 91.3 fl (80-94); Mean Platelet Volume 10.2 fL (7.4-10.4); Monocytes # 1.7 10^3/uL (0.2-0.9); Monocytes % 14.5 %; Neutrophils # 8.75 10^3/uL (1.8-7.7); Neutrophils % 73.9 %; Nucleated Red Blood Cells % 0 %; Platelet Count 154 10^3/cmm (130-400); Red Blood Count 4.84 10^6/uL (4.1-5.3); Red Cell Distribution Width 14.2 % (12.1-15.1); White Blood Count 11.9 10^3/uL (4.0-10.0)
[2022-04-10 02:15] LABS: Ammonia 39 umol/L (16-60); Lactic Sepsis W/Reflex 1.2 mmol/L (0.5-2.2); Partial Thromboplastin Time 88.6 SECONDS (23.9-36.7)
[2022-04-10 02:26] LABS: NT Pro B Type Natriuretic Pept 275 pg/mL (0-125); Procalcitonin 0.08 ng/mL (0-0.5)
[2022-04-10 02:28] LABS: INR 1.11 (0.8-1.2)
[2022-04-10 02:37] LABS: Alanine Aminotransferase 24 U/L (0-41); Alkaline Phosphatase 56 IU/L (40-130); Anion Gap 15.7 (5-19); Aspartate Amino Transferase 35 U/L (0-40); Blood Urea Nitrogen 22 mg/dL (8-23); C Reactive Protein 21.2 mg/L (0.0-4.9); Carbon Dioxide 26 mmol/L (22-29); Chloride 101 mmol/L (98-107); Cholesterol 120 mg/dL (0-200); Globulin 3.1 g/dL (1.3-4.6); Glomerular Filtration Rate 95.8 mL/min (90-130); Glucose 107 mg/dL (65-115); HDL Cholesterol 50 mg/dL (60-100); LDL Cholesterol Calculated 56 mg/dL (50-129); LDL HDL Ratio 1.12 RATIO (0.00-3.22); Magnesium 1.9 mg/dL (1.7-2.3); Osmolality Calculated 292 mOsm/kg (285-295); Phosphorus 3.5 mg/dL (2.5-4.5); Potassium 3.7 mmol/L (3.5-5.1); Sodium 139 mmol/L (136-145); Total Bilirubin 0.7 mg/dL (0.15-1.2); Total Protein 6.1 g/dL (6.6-8.7); Triglycerides 68 mg/dL (0-150)
[2022-04-10 02:39] LABS: Creatine Phosphokinase 1182 U/L (39-308)
[2022-04-10] MEDS: ipratropium-albuterol 3 mL Neb INHALATION ×6 (03:17→23:39)
[2022-04-10 03:28] LABS: ABG PCO2 47.9 mmHg (35-45); ABG PH Result 7.45 (7.35-7.45); Arterial Blood Gas Hematocrit 46.2 % (42-52); Blood Gas Allen Test Pos; Blood Gas Sample Site Radial, right; Blood Gas Sample Type Arterial; Blood Gas Tidal Volume 0.55; HCO3 ABG 33.4 mmol/L (22-26); Oxygen Device VENT; PO2 ABG 69.8 mmHg (80.0-100.0)
[2022-04-10] MEDS: heparin drip 25,000 UNIT/500 ML PREMIX 26 UNIT IV (04:18)
[2022-04-10] MEDS: propofol 1,000 MG/100 ML INJ 26.1 MG IV ×2 (06:13→09:32)
--- NOTE | 2022-04-10 07:00 | XRR_ITS ---
PROCEDURE INFORMATION: Exam: XR Chest Exam date and time: 04/10/2022 4:46 AM Age: 67 years old Clinical indication: Cardiovascular condition or disease; Other: Icu follow up; Additional info: SOB TECHNIQUE: Imaging protocol: Radiologic exam of the chest. Views: 1 view. COMPARISON: CR XR chest 1V portable [id number] 04/09/2022 10:04 AM FINDINGS: Tubes, catheters and devices: Endotracheal tube approximately 3 cm above the cooper. An enteric tube is noted extending below the level of the diaphragm and out of the field of view. Left-sided subclavian central venous line with the distal tip at the cavoatrial junction. Lungs: Low lung volumes. Bibasilar consolidation possibly atelectasis, similar to prior exam. Pleural spaces: Questionable small left-sided pleural effusion. Heart/Mediastinum: The cardiomediastinal silhouette is within normal limits. Bones/joints: Unremarkable. XR/XR chest 1V portable [id number] IMPRESSION: 1. No significant change from prior exam. 2. Bibasilar consolidation possibly atelectasis. 3. Questionable small left-sided pleural effusion.
[2022-04-10 08:05] LABS: Glucose Point of Care 81 mg/dL (70-110)
[2022-04-10] MEDS: magnesium sulfate premix 2 GM/50 ML PIGGYBACK IV (08:33)
[2022-04-10] MEDS: lidocaine 1% 5 ML in potassium chloride premix 100 ML 50 ML IV (08:35)
[2022-04-10] MEDS: FUROsemide 10 mg/mL SDV 4mL 40 MG IVP ×3 (08:35→17:09)
[2022-04-10] MEDS: tamsulosin 0.4 mg Capsule PO (08:36)
[2022-04-10] MEDS: aspirin 81 mg EC Tablet PO (08:36)
[2022-04-10] MEDS: metOLazone 5 MG Tablet PO (08:36)
--- NOTE | 2022-04-10 09:07 | PC.NURSE ---
Patient family brought patient medication from home. Timolol maleate ophthalmic solution and Latanoprost ophthalmic solution. medications placed in pixys.
[2022-04-10 09:16] LABS: Partial Thromboplastin Time 88.6 SECONDS (23.9-36.7)
--- NOTE | 2022-04-10 09:52 | PC.CHAP ---
Pastoral Care Encounter/Spiritual Assessment Type of Contact [] Declined silverer visit [] Patient/Family/Request visit [] Outpatient visit [] Follow-up visit [] Physician referral [] Code/Alert [x] Routine visit [] Staff referral [] Actively dying [x] Patient sleeping [x] Family support [] [] Out of room [] Palliative care [] [] Receiving care in room [] Pre-surgical visit [] Trauma [] Long length of stay [x] ICU visit [x] Other: vent.. possible removal today.. several family members present.. some stayed the night Relational/Emotional Strength [] Patient feels connected with others/family/visitors/staff [] Distress [] Loneliness/isolation [] Abandonment Spirituality of Patient [] Person of Priscila [] Attends Nondenominational of their Priscila [] Believes in Prayer [] Reads Bible or Jainism materials [] There are Spiritual issues to be addressed Post Doctoral Fellow Interventions [x] Prayer [] Active listening [] Non-anxious presence [] Spiritual/emotional support [] Crisis/trauma care [] Spiritual counseling [] Bereavement support [] Provided bereavement packet [] Provided Bible/devotional materials [] Provided toy/stuffed animal, coloring book to patient or family member [] Provided Communion [] Anointing/[place] [] Salvation [x] Completed spiritual assessment [] Other: Impact on Illness or Injury [] Angry [] Fearful [] Anxious [] Often cries [] Exhaustion [] Unable to work [] Unable to attend hoahaoism [] Unable to walk/stand [] Unable to read [] Unable to drive [] Unable to eat/drink [] Unable to sleep [] Unable to be with family [] Patient intubated [] Other: Summary Time spent with patient
--- NOTE | 2022-04-10 11:24 | P.PN_ITS ---
Subjective Subjective: Patient was seen this morning, family members at bedside, did have a low-grade fever overnight, according to his , he did awaken during. During the night, she helped calm him down, remains normotensive, off pressors, remains on sedation, 40% FiO2 Vitals/I&O/Wt Last Vital Signs Temp 99.3 F 04/10/22 07:30 Pulse 70 04/10/22 11:01 Resp 18 04/10/22 11:01 BP 129/68 04/10/22 09:00 Pulse Ox 94 04/10/22 11:01 04/09/22 04/10/22 04/10/22 22:59 06:59 14:59 Intake Total 332.647 / 1151.925 689.317 / 1841.242 466.890 / 466.890 Output Total 850 / 850 1100 / 1950 2100 / 2100 Balance -517.353 / 301.925 -410.683 / -108.758 -1633.110 / -1633.110 Weight last 48 hrs Weight 149.374 kg Physical Exam Const: COMMON NORMALS: no acute distress OTHER: Remains intubated, sedated, on mechanical ventilation HENMT: COMMON NORMALS: normocephalic HEAD & SCALP: normocephalic Neck/C-Spine: COMMON NORMALS: no JVD Resp: COMMON NORMALS: normal respiratory effort, No retractions, No use of accessory muscles and clear to auscultation bilaterally AUSCULTATION: clear to auscultation bilaterally Cardio: COMMON NORMALS: no JVD, regular rate, regular rhythm, S1 normal heart sound present and S2 normal heart sound present RATE: regular rate RHYTHM: regular rhythm HEART SOUNDS: S1 normal heart sound present and S2 normal heart sound present GI: COMMON NORMALS: Normal to inspection, nondistended, normoactive bowel sounds present, Soft to palpation, non-tender and No hepatosplenomegaly present PALPATION: Yes Soft to palpation and Yes No hepatosplenomegaly present Extremity: COMMON NORMALS: no calf tenderness and no pedal edema Urinary Catheter Management: Norton: Cath Placed During This Visit: yes Reason for Continuing Indwelling Catheter: Accurate Measurement of Urinary Output in Critically Ill Patients Urinary Catheter Date of Insertion: 04/09/22 Urinary Catheter Time of Insertion: 07:16 Data : 04/10/22 01:40 04/10/22 01:40 Micro: Microbiology 04/09/22 07:40 Gram Stain - Final Sputum - Endotracheal Tube Aspirate Sputum Culture - Preliminary 04/09/22 07:40 Blood Culture - Preliminary Blood NEGATIVE TO DATE 04/09/22 07:34 Blood Culture - Preliminary Blood NEGATIVE TO DATE 04/09/22 10:38 MRSA Culture - Final Nose A&P Assessment and plan (1) Acute respiratory failure with hypoxia: Status: Acute (2) Altered mental status: Status: Acute (3) Hypercarbia: Status: Acute (4) Non-ST elevation [place] (NSTEMI): Status: Acute (5) Bilateral atelectasis: Status: Acute Plan Acute hypoxic respiratory failure, possibly fluid overload With altered mental status possible hypercarbia, possible CVA With evidence of fluid overload With NSTEMI Evidence of fluid overload History of MENDEZ, now with hypercarbia Elevated lactic acid 1.2 -CT angiogram does not show any evidence of pulmonary embolism -CT head no acute stroke, no acute findings -CTA head and neck, no carotid artery dissection -CT of the chest does show bilateral atelectasis Plan -Plan on spontaneous breathing trial today, and extubation today -1 dose Lasix with metolazone -Continue intubation, sedation, minimize FiO2, minimize tidal volume -Fentanyl, Versed, propofol for sedation -Lasix daily dosing -Heparin drip -Cardiac echo ?Normal left ventricular size, systolic function and wall ?thickness, with no regional wall motion abnormalities. Left ?ventricular ejection fraction is estimated at 60 %. Grade I/IV ?diastolic dysfunction (abnormal relaxation filling pattern), ?normal to mildly elevated filling pressures. ?There are no prior echocardiogram studies to compare. -Aspirin, statin, neurochecks -Continue Levophed, maintain MAP greater than 65 -Norton catheter placed monitor urine output, monitor creatinine monitor electrolytes -Telemetry monitoring -Primaxin for antibiotic coverage -Full code -Heparin drip for DVT prophylaxis -Protonix for GI prophylaxis Attestations Medical Necessity Statement*: Patient requires hospitalization for acute hypoxic respiratory failure, NSTEMI, fluid overload, critical care time spent 45 minutes Coding Level of Care Code Acute Plaster Pattern Caster for [facility] Diagnoses Acute respiratory failure with hypoxia J96.01 Altered mental status R41.82 Hypercarbia R06.89 Non-ST elevation [place] (NSTEMI) I21.4 Bilateral atelectasis J98.11
[2022-04-10] MEDS: pantoprazole 40 mg SDV IVP ×2 (11:55→23:56)
[2022-04-10 13:03] LABS: Glucose Point of Care 84 mg/dL (70-110)
[2022-04-10 13:58] LABS: Partial Thromboplastin Time 73.6 SECONDS (23.9-36.7)
[2022-04-10] MEDS: guaiFENesin 600 mg Tablet 1200 MG PO (15:02)
[2022-04-10] MEDS: enoxaparin 40 mg/0.4 mL Syringe SUBCUT (15:02)
[2022-04-10] MEDS: acetylcysteine 200 mg/mL SDV 4 mL 100 MG INHALATION ×3 (15:27→23:39)
[2022-04-10 18:20] LABS: Glucose Point of Care 133 mg/dL (70-110)
[2022-04-10 19:35] LABS: Partial Thromboplastin Time 38.7 SECONDS (23.9-36.7)
[2022-04-10] MEDS: sodium chloride 3.5% neb 4 mL Neb INHALATION (20:05)
[2022-04-10] MEDS: atorvastatin 40 mg Tablet PO (20:15)
[2022-04-10] MEDS: LATANOPROST 0.005% 1 EACH EYEAFF (20:15)
--- NOTE | 2022-04-10 20:34 | PC.NURSE ---
Addendum entered by Mayank Heck RN 04/11/22 06:13: I witnessed waste of both fentanyl and versed Original Note: Waste Fentanyl & Versed Drips Wasted Fentanyl 223.75 mls and Versed 67.8 mls with FELISHA Talley.
[2022-04-11] VITALS (75 sets, daily range): BP systolic 121–182; BP diastolic 71–110; PULSE 70–99; RESP 15–33; TEMP 37–37.2; O2SAT 86–97
[2022-04-11] MEDS: guaiFENesin 600 mg Tablet 1200 MG PO ×2 (02:08→14:15)
[2022-04-11] MEDS: acetylcysteine 200 mg/mL SDV 4 mL 100 MG INHALATION ×5 (03:35→23:32)
[2022-04-11] MEDS: ipratropium-albuterol 3 mL Neb INHALATION ×6 (03:35→23:32)
--- NOTE | 2022-04-11 05:11 | PC.NURSE ---
Shift Summary Patient had an uneventful shift remains alert/oriented x4 on BIPAP 50% FiO2. No wounds or skin issues noted at this time. Norton catheter drained 2300 mls of urine overnight. No complaints of pain overnight.
--- NOTE | 2022-04-11 06:00 | XRR_ITS ---
PROCEDURE INFORMATION: Exam: XR Chest Exam date and time: 04/11/2022 4:58 AM Age: 67 years old Clinical indication: Shortness of breath; Additional info: SOB TECHNIQUE: Imaging protocol: Radiologic exam of the chest. Views: 1 view. Total images: 301 COMPARISON: CR (CHEST, ) 04/10/2022 4:46 AM FINDINGS: Tubes, catheters and devices: There has been interval removal of the endotracheal tube. There has been interval removal of the enteric tube. A left subclavian central venous catheter is present, with its tip overlying the region of the superior vena cava and unchanged from prior exam. Lungs: Bilateral pulmonary opacities are again noted with the left-sided opacities showing interval improvement. Pleural spaces: Unremarkable. No pleural effusion. No pneumothorax. Heart/Mediastinum: Low lung volumes are present, accentuating cardiac size and pulmonary markings. Bones/joints: Osseous structures are unchanged from the prior exam. XR/XR chest 1V portable [id number] IMPRESSION: 1. Low lung volumes are present, accentuating cardiac size and pulmonary markings. 2. Bilateral pulmonary opacities are again noted with the left-sided opacities showing interval improvement.
[2022-04-11 06:21] LABS: Basophils % 0.1 %; Hematocrit 49.2 % (42.0-52.0); Lymphocytes # 0.9 10^3/uL (0.8-4.8); Lymphocytes % 6.3 %; Mean Corpuscular HGB Conc 32.5 g/dL (30.0-36.0); Mean Corpuscular Hemoglobin 29.5 pg (28.0-34.0); Mean Corpuscular Volume 90.8 fl (80-94); Mean Platelet Volume 10.6 fL (7.4-10.4); Monocytes # 1.9 10^3/uL (0.2-0.9); Monocytes % 12.7 %; Neutrophils # 11.95 10^3/uL (1.8-7.7); Neutrophils % 80.3 %; Nucleated Red Blood Cells % 0 %; Platelet Count 184 10^3/cmm (130-400); Red Blood Count 5.42 10^6/uL (4.1-5.3); Red Cell Distribution Width 13.9 % (12.1-15.1); White Blood Count 14.9 10^3/uL (4.0-10.0)
[2022-04-11 06:40] LABS: INR 1.14 (0.8-1.2)
[2022-04-11 06:45] LABS: Lactate (Lactic Acid level) 1.9 mmol/L (0.5-2.2)
[2022-04-11 07:01] LABS: NT Pro B Type Natriuretic Pept 233 pg/mL (0-125)
[2022-04-11 07:04] LABS: ABG PCO2 47.2 mmHg (35-45); ABG PH Result 7.52 (7.35-7.45); Arterial Blood Gas Hematocrit 50.8 % (42-52); Blood Gas Allen Test Pos; Blood Gas Operator Identificat JB; Blood Gas Sample Site Brachial, right; Blood Gas Sample Type Arterial; HCO3 ABG 38.1 mmol/L (22-26); Oxygen Device BIPAP; PO2 ABG 92.1 mmHg (80.0-100.0)
[2022-04-11 07:12] LABS: Alanine Aminotransferase 37 U/L (0-41); Albumin Level 3.5 g/dL (3.5-5.2); Alkaline Phosphatase 57 IU/L (40-130); Anion Gap 14.1 (5-19); Aspartate Amino Transferase 93 U/L (0-40); Blood Urea Nitrogen 23 mg/dL (8-23); C Reactive Protein 117.7 mg/L (0.0-4.9); Calcium 8.8 mg/dL (8.5-10.5); Carbon Dioxide 35 mmol/L (22-29); Chloride 92 mmol/L (98-107); Globulin 3.4 g/dL (1.3-4.6); Glomerular Filtration Rate 111.8 mL/min (90-130); Glucose 108 mg/dL (65-115); Magnesium 1.9 mg/dL (1.7-2.3); Osmolality Calculated 290 mOsm/kg (285-295); Potassium 3.1 mmol/L (3.5-5.1); Sodium 138 mmol/L (136-145); Total Protein 6.9 g/dL (6.6-8.7)
[2022-04-11 07:29] LABS: Creatine Phosphokinase 2734 U/L (39-308)
[2022-04-11] MEDS: sodium chloride 3.5% neb 4 mL Neb INHALATION ×2 (07:49→20:33)
[2022-04-11 07:51] LABS: Glucose Point of Care 116 mg/dL (70-110)
[2022-04-11] MEDS: FUROsemide 10 mg/mL SDV 4mL 40 MG IVP ×2 (08:00→17:29)
[2022-04-11] MEDS: metOLazone 5 MG Tablet PO (08:00)
[2022-04-11] MEDS: lidocaine 1% 5 ML in potassium chloride premix 100 ML 25 ML IV (08:01)
[2022-04-11] MEDS: tamsulosin 0.4 mg Capsule PO (08:56)
[2022-04-11] MEDS: aspirin 81 mg EC Tablet PO (08:56)
[2022-04-11] MEDS: spironolactone 25 mg Tablet PO (10:17)
[2022-04-11] MEDS: pantoprazole 40 mg SDV IVP ×2 (11:10→23:34)
--- NOTE | 2022-04-11 12:08 | PC.CHAP ---
Pastoral Care Encounter/Spiritual Assessment Type of Contact [] Declined chemical technician visit [] Patient/Family/Request visit [] Outpatient visit [] Follow-up visit [] Physician referral [] Code/Alert [x] Routine visit [] Staff referral [] Actively dying [] Patient sleeping x] Family support [] [] Out of room [] Palliative care [] [] Receiving care in room [] Pre-surgical visit [] Trauma [] Long length of stay [x] ICU visit [x] Other: off vent.. eyes open and having conversation Relational/Emotional Strength [] Patient feels connected with others/family/visitors/staff [] Distress [] Loneliness/isolation [] Abandonment Spirituality of Patient [] Person of Priscila [] Attends Zoroastrianism of their Priscila [] Believes in Prayer [] Reads Bible or Presybeterian materials [] There are Spiritual issues to be addressed Receiving And Processing Supervisor Interventions [x] Prayer [x] Active listening [x] Non-anxious presence [x] Spiritual/emotional support [] Crisis/trauma care [] Spiritual counseling [] Bereavement support [] Provided bereavement packet [] Provided Bible/devotional materials [] Provided toy/stuffed animal, coloring book to patient or family member [] Provided Communion [] Anointing/[place] [] Salvation [x] Completed spiritual assessment [] Other: Impact on Illness or Injury [] Angry [] Fearful [] Anxious [] Often cries [] Exhaustion [] Unable to work [] Unable to attend religious [] Unable to walk/stand [] Unable to read [] Unable to drive [] Unable to eat/drink [] Unable to sleep [] Unable to be with family [] Patient intubated [] Other: Summary so excited in process of healing.... more to come Time spent with patient 10 min
[2022-04-11] MEDS: enoxaparin 40 mg/0.4 mL Syringe SUBCUT (14:15)
--- NOTE | 2022-04-11 14:24 | PM.PN ---
Subjective Subjective: Patient was seen this morning, currently on heated high flow, he tells me he is feeling a lot better, no shortness of breath, no pain, successfully extubated yesterday, he had high flow, used BiPAP overnight alert oriented x3, following all commands Vitals/I&O/Wt Last Vital Signs Temp 98.9 F 04/11/22 07:30 Pulse 86 04/11/22 12:30 Resp 22 H 04/11/22 12:30 BP 152/75 04/11/22 11:45 Pulse Ox 93 04/11/22 12:30 04/10/22 04/11/22 04/11/22 22:59 06:59 14:59 Intake Total 580 / 1210.750 680 / 6098.624 3201 / 1095 Output Total 2000 / 6800 2300 / 9100 1400 / 1400 Balance -1420 / -5589.250 -1620 / -7209.250 -305 / -305 Physical Exam Const: COMMON NORMALS: no acute distress and patient oriented x3 Resp: COMMON NORMALS: normal respiratory effort, No retractions, No use of accessory muscles and clear to auscultation bilaterally AUSCULTATION: clear to auscultation bilaterally Cardio: COMMON NORMALS: regular rate, regular rhythm, S1 normal heart sound present and S2 normal heart sound present RATE: regular rate RHYTHM: regular rhythm HEART SOUNDS: S1 normal heart sound present and S2 normal heart sound present GI: COMMON NORMALS: Normal to inspection, nondistended, normoactive bowel sounds present, Soft to palpation and non-tender PALPATION: Yes Soft to palpation Extremity: NARRATIVE EXTREMITY EXAM: 1+ pitting edema bilateral extremity Neuro: COMMON NORMALS: patient oriented x3 Psych: COMMON NORMALS: mental status grossly normal Urinary Catheter Management: Norton: Cath Placed During This Visit: yes Reason for Continuing Indwelling Catheter: Accurate Measurement of Urinary Output in Critically Ill Patients Urinary Catheter Date of Insertion: 04/09/22 Urinary Catheter Time of Insertion: 07:16 Data : 04/11/22 05:15 04/11/22 05:15 Micro: Microbiology 04/09/22 07:40 Gram Stain - Final Sputum - Endotracheal Tube Aspirate Sputum Culture - Final A&P Assessment and plan (1) Acute respiratory failure with hypoxia: Status: Acute (2) Altered mental status: Status: Acute (3) Hypercarbia: Status: Acute (4) Non-ST elevation MD (NSTEMI): Status: Acute (5) Bilateral atelectasis: Status: Acute Plan Acute hypoxic respiratory failure, possibly fluid overload With altered mental status possible hypercarbia, possible CVA With evidence of fluid overload With NSTEMI Evidence of fluid overload History of MENDEZ, now with hypercarbia Likely obesity hypoventilation syndrome Elevated lactic acid 1.2, resolved -CT angiogram does not show any evidence of pulmonary embolism -CT head no acute stroke, no acute findings -CTA head and neck, no carotid artery dissection -CT of the chest does show bilateral atelectasis -Extubated to heated high flow 04/10/2022 Plan -Continue heated high flow, BiPAP during the night - diuresed over 7 L -Continue Lasix therapy, daily dosing with metolazone -Cardiac echo ?Normal left ventricular size, systolic function and wall ?thickness, with no regional wall motion abnormalities. Left ?ventricular ejection fraction is estimated at 60 %. Grade I/IV ?diastolic dysfunction (abnormal relaxation filling pattern), ?normal to mildly elevated filling pressures. ?There are no prior echocardiogram studies to compare. -Aspirin, statin, neurochecks -Continue Levophed, maintain MAP greater than 65 -Norton catheter placed monitor urine output, monitor creatinine monitor electrolytes -Telemetry monitoring -Pulmonary toilet, chest vest therapy, Mucomyst, hypertonic saline -Primaxin for antibiotic coverage -Low-dose prednisone -Full code -Lovenox for DVT prophylaxis -Protonix for GI prophylaxis Attestations Medical Necessity Statement*: Patient requires hospitalization for acute hypoxic respiratory failure, critical care time spent 25 minutes Coding Level of Care Code Acute Civil Engineering Project Manager for [facility] Fwd Exam Detailed Diagnoses Acute respiratory failure with hypoxia J96.01 Altered mental status R41.82 Hypercarbia R06.89 Non-ST elevation MD (NSTEMI) I21.4 Bilateral atelectasis J98.11
[2022-04-11 14:29] LABS: Glucose Point of Care 105 mg/dL (70-110)
[2022-04-11] MEDS: predniSONE 20 mg Tablet 40 MG PO (15:23)
[2022-04-11] MEDS: potassium chloride ER 20 mEq Tablet PO (17:29)
--- NOTE | 2022-04-11 18:57 | PC.NURSE ---
Patient transferred to room 255-1 at 1820, accompanied by 1 RN and 1RT. Patient resting in bed with belongings and family at bedside. Patient chart and home medications left with staff at front desk representative.
[2022-04-11 20:53] LABS: Glucose Point of Care 135 mg/dL (70-110)
[2022-04-11] MEDS: atorvastatin 40 mg Tablet PO (21:43)
[2022-04-11] MEDS: LATANOPROST 0.005% 1 EACH EYEAFF (22:15)
[2022-04-12] VITALS (16 sets, daily range): BP systolic 126–178; BP diastolic 72–95; PULSE 68–105; RESP 18–20; TEMP 36.3–37.2; O2SAT 91–98
[2022-04-12] MEDS: guaiFENesin 600 mg Tablet 1200 MG PO ×2 (02:13→15:45)
[2022-04-12 03:46] LABS: Basophils % 0.2 %; Eosinophils % 0.1 %; Hematocrit 49.2 % (42.0-52.0); Hemoglobin 16.2 g/dL (11.7-16.6); Lymphocytes % 7.7 %; Mean Corpuscular HGB Conc 32.9 g/dL (30.0-36.0); Mean Corpuscular Hemoglobin 29.7 pg (28.0-34.0); Mean Corpuscular Volume 90.1 fl (80-94); Mean Platelet Volume 10.5 fL (7.4-10.4); Monocytes # 1.6 10^3/uL (0.2-0.9); Monocytes % 12.3 %; Neutrophils # 10.41 10^3/uL (1.8-7.7); Neutrophils % 79.1 %; Nucleated Red Blood Cells % 0 %; Platelet Count 176 10^3/cmm (130-400); Red Blood Count 5.46 10^6/uL (4.1-5.3); Red Cell Distribution Width 13.9 % (12.1-15.1); White Blood Count 13.1 10^3/uL (4.0-10.0)
[2022-04-12 03:57] LABS: INR 1.05 (0.8-1.2)
[2022-04-12 04:08] LABS: Alanine Aminotransferase 42 U/L (0-41); Albumin Level 3.4 g/dL (3.5-5.2); Alkaline Phosphatase 57 IU/L (40-130); Anion Gap 11.4 (5-19); Aspartate Amino Transferase 96 U/L (0-40); Blood Urea Nitrogen 26 mg/dL (8-23); C Reactive Protein 74.1 mg/L (0.0-4.9); Calcium 8.8 mg/dL (8.5-10.5); Carbon Dioxide 36 mmol/L (22-29); Chloride 93 mmol/L (98-107); Globulin 3.7 g/dL (1.3-4.6); Glomerular Filtration Rate 95.8 mL/min (90-130); Glucose 118 mg/dL (65-115); Osmolality Calculated 290 mOsm/kg (285-295); Phosphorus 4.1 mg/dL (2.5-4.5); Potassium 3.4 mmol/L (3.5-5.1); Sodium 137 mmol/L (136-145); Total Bilirubin 1.1 mg/dL (0.15-1.2); Total Protein 7.1 g/dL (6.6-8.7)
[2022-04-12 04:19] LABS: NT Pro B Type Natriuretic Pept 98 pg/mL (0-125)
[2022-04-12] MEDS: acetylcysteine 200 mg/mL SDV 4 mL 100 MG INHALATION ×5 (04:26→21:39)
[2022-04-12] MEDS: ipratropium-albuterol 3 mL Neb INHALATION ×5 (04:26→21:39)
[2022-04-12 04:33] LABS: Creatine Phosphokinase 1490 U/L (39-308)
[2022-04-12 04:40] LABS: ABG PCO2 50.5 mmHg (35-45); ABG PH Result 7.49 (7.35-7.45); Arterial Blood Gas Hematocrit 53.3 % (42-52); Base Excess ABG 12.9 mmol/L (-2.0-2.0); Blood Gas Allen Test Pos; Blood Gas Sample Site Radial, right; Blood Gas Sample Type Arterial; HCO3 ABG 38.8 mmol/L (22-26); Oxygen Device BIPAP; PO2 ABG 71.6 mmHg (80.0-100.0)
[2022-04-12 06:56] LABS: Glucose Point of Care 184 mg/dL (70-110)
[2022-04-12] MEDS: sodium chloride 3.5% neb 4 mL Neb INHALATION ×2 (07:22→21:41)
[2022-04-12] MEDS: lidocaine 1% 5 ML in potassium chloride premix 100 ML 25 ML IV (09:06)
[2022-04-12] MEDS: metOLazone 5 MG Tablet PO (09:13)
[2022-04-12] MEDS: aspirin 81 mg EC Tablet PO (09:13)
[2022-04-12] MEDS: tamsulosin 0.4 mg Capsule PO (09:13)
[2022-04-12] MEDS: FUROsemide 10 mg/mL SDV 4mL 40 MG IVP ×2 (09:13→22:45)
[2022-04-12] MEDS: spironolactone 25 mg Tablet PO (09:13)
[2022-04-12] MEDS: predniSONE 20 mg Tablet 40 MG PO (09:13)
[2022-04-12 11:16] LABS: Glucose Point of Care 167 mg/dL (70-110)
--- NOTE | 2022-04-12 12:24 | P.PN_ITS ---
Subjective Subjective: Patient was seen this morning currently on 10 L, he tells me he feels a lot better, currently on 10 L, he is able to stand, not able to ambulate yet Vitals/I&O/Wt Last Vital Signs Temp 97.4 F L 04/12/22 11:26 Pulse 105 H 04/12/22 11:26 Resp 18 04/12/22 11:26 BP 153/80 04/12/22 11:26 Pulse Ox 91 04/12/22 11:26 04/11/22 04/12/22 04/12/22 22:59 06:59 14:59 Intake Total 350 / 1445 100 / 1545 580 / 580 Output Total 3200 / 4600 550 / 5150 1100 / 1100 Balance -2850 / -3155 -450 / -3605 -520 / -520 Physical Exam Const: COMMON NORMALS: no acute distress and patient oriented x3 Resp: COMMON NORMALS: normal respiratory effort, No retractions, No use of accessory muscles and clear to auscultation bilaterally AUSCULTATION: clear to auscultation bilaterally Cardio: COMMON NORMALS: regular rate, regular rhythm, S1 normal heart sound present and S2 normal heart sound present RATE: regular rate RHYTHM: regular rhythm HEART SOUNDS: S1 normal heart sound present and S2 normal heart sound present GI: COMMON NORMALS: Normal to inspection, nondistended, normoactive bowel sounds present, Soft to palpation, non-tender and No hepatosplenomegaly present PALPATION: Yes Soft to palpation and Yes No hepatosplenomegaly present Extremity: NARRATIVE EXTREMITY EXAM: 1+ pitting edema Neuro: COMMON NORMALS: patient oriented x3 Psych: COMMON NORMALS: mental status grossly normal Urinary Catheter Management: Norton: Cath Placed During This Visit: yes Reason for Continuing Indwelling Catheter: Acute Urinary Retention or Obstruction Urinary Catheter Date of Insertion: 04/09/22 Urinary Catheter Time of Insertion: 07:16 Data : 04/12/22 03:33 04/12/22 03:33 Micro: Microbiology 04/09/22 07:40 Gram Stain - Final Sputum - Endotracheal Tube Aspirate Sputum Culture - Final A&P Assessment and plan (1) Acute respiratory failure with hypoxia: Status: Acute (2) Altered mental status: Status: Acute (3) Hypercarbia: Status: Acute (4) Non-ST elevation TN (NSTEMI): Status: Acute (5) Bilateral atelectasis: Status: Acute Plan Acute hypoxic respiratory failure, secondary to fluid overload With altered mental status possible hypercarbia With evidence of fluid overload With NSTEMI Evidence of fluid overload History of MENDEZ, now with hypercarbia Likely obesity hypoventilation syndrome Elevated lactic acid 1.2, resolved -CT angiogram does not show any evidence of pulmonary embolism -CT head no acute stroke, no acute findings -CTA head and neck, no carotid artery dissection -CT of the chest does show bilateral atelectasis -Extubated to heated high flow 04/10/2022 Plan -Continue heated high flow, BiPAP during the night - diuresed over 11 L -Continue Lasix therapy, daily dosing with metolazone -Cardiac echo ?Normal left ventricular size, systolic function and wall ?thickness, with no regional wall motion abnormalities. Left ?ventricular ejection fraction is estimated at 60 %. Grade I/IV ?diastolic dysfunction (abnormal relaxation filling pattern), ?normal to mildly elevated filling pressures. ?There are no prior echocardiogram studies to compare. -Aspirin, statin, neurochecks -Continue Levophed, maintain MAP greater than 65 -Norton catheter placed monitor urine output, monitor creatinine monitor electrolytes -Telemetry monitoring -Pulmonary toilet, chest vest therapy, Mucomyst, hypertonic saline -Primaxin for antibiotic coverage -Low-dose prednisone -We will do a overnight pulse ox, I feel patient would clinically benefit from a CPAP, given his sleep apnea, MENDEZ, history of hypercarbia -Full code -Lovenox for DVT prophylaxis -Protonix for GI prophylaxis Attestations Medical Necessity Statement*: Patient requires hospitalization for acute hypoxic respiratory failure secondary fluid overload Coding Level of Care Code Acute Counseling [facility] Director for Chg Fwd Diagnoses Acute respiratory failure with hypoxia J96.01 Altered mental status R41.82 Hypercarbia R06.89 Non-ST elevation TN (NSTEMI) I21.4 Bilateral atelectasis J98.11
[2022-04-12] MEDS: pantoprazole 40 mg SDV IVP (12:27)
--- NOTE | 2022-04-12 13:47 | PC.SOCIAL ---
Pg 2 IMM Explained to pt Pg 2 IMM. No questions voiced. Provided pt a copy. Initialed, dated, & timed a copy & placed in chart.
[2022-04-12] MEDS: enoxaparin 40 mg/0.4 mL Syringe SUBCUT (15:45)
[2022-04-12 17:01] LABS: Glucose Point of Care 135 mg/dL (70-110)
[2022-04-12] MEDS: potassium chloride ER 20 mEq Tablet 40 MEQ PO (18:18)
[2022-04-12] MEDS: LATANOPROST 0.005% 1 EACH EYEAFF (21:26)
[2022-04-12] MEDS: atorvastatin 40 mg Tablet PO (21:26)
[2022-04-12 23:31] LABS: Glucose Point of Care 106 mg/dL (70-110)
[2022-04-13] VITALS (11 sets, daily range): BP systolic 120–168; BP diastolic 67–86; PULSE 69–85; RESP 16–20; TEMP 36.8–37; O2SAT 90–95
[2022-04-13] MEDS: pantoprazole 40 mg SDV IVP ×2 (00:24→12:08)
[2022-04-13] MEDS: acetylcysteine 200 mg/mL SDV 4 mL 100 MG INHALATION ×3 (01:03→07:53)
[2022-04-13] MEDS: ipratropium-albuterol 3 mL Neb INHALATION ×3 (01:03→07:53)
[2022-04-13] MEDS: guaiFENesin 600 mg Tablet 1200 MG PO (02:31)
[2022-04-13 05:06] LABS: Basophils % 0.2 %; Eosinophils # 0.1 10^3/uL (0.0-0.8); Eosinophils % 0.7 %; Hematocrit 51.1 % (42.0-52.0); Hemoglobin 16.9 g/dL (11.7-16.6); Lymphocytes # 1.5 10^3/uL (0.8-4.8); Lymphocytes % 10.8 %; Mean Corpuscular HGB Conc 33.1 g/dL (30.0-36.0); Mean Corpuscular Volume 90.8 fl (80-94); Monocytes # 1.8 10^3/uL (0.2-0.9); Monocytes % 13.5 %; Neutrophils # 9.96 10^3/uL (1.8-7.7); Neutrophils % 74.2 %; Nucleated Red Blood Cells % 0 %; Platelet Count 188 10^3/cmm (130-400); Red Blood Count 5.63 10^6/uL (4.1-5.3); Red Cell Distribution Width 13.8 % (12.1-15.1); White Blood Count 13.4 10^3/uL (4.0-10.0)
[2022-04-13 05:28] LABS: Alanine Aminotransferase 42 U/L (0-41); Albumin Level 3.6 g/dL (3.5-5.2); Alkaline Phosphatase 60 IU/L (40-130); Anion Gap 12.4 (5-19); Aspartate Amino Transferase 75 U/L (0-40); Blood Urea Nitrogen 29 mg/dL (8-23); Calcium 9.4 mg/dL (8.5-10.5); Carbon Dioxide 36 mmol/L (22-29); Chloride 95 mmol/L (98-107); Globulin 3.8 g/dL (1.3-4.6); Glomerular Filtration Rate 95.8 mL/min (90-130); Glucose 104 mg/dL (65-115); Magnesium 1.9 mg/dL (1.7-2.3); Osmolality Calculated 296 mOsm/kg (285-295); Phosphorus 4.9 mg/dL (2.5-4.5); Potassium 3.4 mmol/L (3.5-5.1); Sodium 140 mmol/L (136-145); Total Bilirubin 0.9 mg/dL (0.15-1.2); Total Protein 7.4 g/dL (6.6-8.7)
[2022-04-13] MEDS: sodium chloride 3.5% neb 4 mL Neb INHALATION (07:56)
[2022-04-13] MEDS: tamsulosin 0.4 mg Capsule PO (09:59)
[2022-04-13] MEDS: FUROsemide 40 mg Tablet PO (09:59)
[2022-04-13] MEDS: spironolactone 25 mg Tablet PO (09:59)
[2022-04-13] MEDS: predniSONE 20 mg Tablet 40 MG PO (10:00)
[2022-04-13] MEDS: aspirin 81 mg EC Tablet PO (10:00)
[2022-04-13] MEDS: potassium chloride ER 20 mEq Tablet 40 MEQ PO (10:00)
--- NOTE | 2022-04-13 10:00 | P.DS_ITS ---
Discharge Providers Date of Admission: 04/09/22 09:01 Date of Discharge: April 13, 2022 Attending Provider at Admission: Issac Lake MD Attending Provider at Discharge: Issac Lake MD Primary Care Provider: Aisha Pagan MD Diagnoses at Discharge Discharge Diagnosis (1) Acute respiratory failure with hypoxia: Status: Acute (2) Altered mental status: Status: Acute (3) Hypercarbia: Status: Acute (4) Non-ST elevation MD (NSTEMI): Status: Acute (5) Bilateral atelectasis: Status: Acute Reason for Visit Reason for Visit: AMS; RESP DISTRESS Hospital Course Hospital Course Davion Marley is a 67 year old male with a past medical history of sleep apnea, history of lower extremity edema, who presents to [facility] due to slurring of his words, altered mental status, and shortness of breath. Patient was admitted to [facility] for acute hypoxic respiratory failure, secondary to fluid overload, altered mental status secondary to hypercarbia, with likely obesity hypoventilation syndrome, and MENDEZ. Patient was admitted to the intensive care unit, intubated and sedated in the emergency room, received diuresis, broad-spectrum antibiotic therapy, clinically monitored. Patient's respiratory status and mentation overall improved, extubated onto heated high flow, add PT OT, extensive pulmonary toilet, moved to general medical floors. Patient was diuresed over 21 L, currently on room air, clinically improved, shortness of breath has resolved. I will discharge home on Lasix 40 twice daily, with potassium replacement therapy, fluid restriction therapy, home O2 eval. Patient is to follow-up with pulmonary as outpatient for consideration of sleep study for sleep apnea and obesity hypoventilation syndrome Patient also had a NSTEMI during his hospitalization, no complaints of chest pain, cardiac echo showed an EF of 60%, diastolic dysfunction. No complaints of chest pain, discharged on aspirin, statin, follow-up with cardiology as outpatient for consideration of stress testing Follow-up with primary care for blood pressure check, repeat blood work in 1 week ? Physical Exam Const: COMMON NORMALS: no acute distress and patient oriented x3 Resp: COMMON NORMALS: normal respiratory effort, No retractions, No use of accessory muscles and clear to auscultation bilaterally AUSCULTATION: clear to auscultation bilaterally Cardio: COMMON NORMALS: regular rate, regular rhythm, S1 normal heart sound present and S2 normal heart sound present RATE: regular rate RHYTHM: regular rhythm HEART SOUNDS: S1 normal heart sound present and S2 normal heart sound present GI: COMMON NORMALS: Normal to inspection, nondistended, normoactive bowel sounds present, Soft to palpation and non-tender PALPATION: Yes Soft to palpation Extremity: COMMON NORMALS: no pedal edema Neuro: COMMON NORMALS: patient oriented x3 Psych: COMMON NORMALS: mental status grossly normal Urinary Catheter Management: Norton: Cath Placed During This Visit: yes Reason for Continuing Indwelling Catheter: Acute Urinary Retention or Obstr uction Urinary Catheter Date of Insertion: 04/09/22 Urinary Catheter Time of Insertion: 07:16 Discharge Data Studies Completed and Pending Completed Studies During Hospitalization Category Date Time Status CT angio chest w abd pel w con Stat Cat Scan 04/09/22 07:[address] angio head neck [CT angio headneck* [id number]] Cat Scan 04/09/22 09:[address] cervical spin wo con* [id number] Stat Cat Scan 04/09/22 07:[address] head wo con* [id number] Stat Cat Scan 04/09/22 07:16 Completed XR chest 1V portable [id number] Routine Exams 04/10/22 07:00 Completed XR chest 1V portable [id number] Routine Exams 04/11/22 06:00 Completed XR chest 1V portable [id number] Stat Exams 04/09/22 07:16 Completed XR chest 1V portable [id number] Stat Exams 04/09/22 10:02 [place] [id number] Routine Ultrasound 04/09/22 11:22 Completed CV. echo complete* [id number] Routine Ultrasound 04/09/22 09:38 Completed Pending at discharge Category Date Time Status Blood Culture Stat Lab 04/09/22 07:40 Results Complete Blood Count w/Auto AM LABS Lab 04/14/22 04:00 Ordered Complete Blood Count w/Auto AM LABS Lab 04/15/22 04:00 Ordered Comprehensive Metabolic Panel AM LABS Lab 04/14/22 04:00 Ordered Comprehensive Metabolic Panel AM LABS Lab 04/15/22 04:00 Ordered Magnesium AM LABS Lab 04/14/22 04:00 Ordered Magnesium AM LABS Lab 04/15/22 04:00 Ordered Phosphorus AM LABS Lab 04/14/22 04:00 Ordered Phosphorus AM LABS Lab 04/15/22 04:00 Ordered Urinalysis Routine Lab 04/09/22 11:22 Ordered Radiology Impressions Cervical Spine CT 04/09/22 07:16 IMPRESSION: 1. No acute cervical fracture. 2. [id number] degenerative disc disease in the cervical spine. 3. Please see dedicated CTA of the chest, abdomen and pelvis for associated findings. Chest/Abdomen/Pelvis CT 04/09/22 07:16 IMPRESSION: 1. No evidence of pulmonary embolus or aortic aneurysm/dissection. 2. Bilateral atelectasis greater on the left side. 3. Coronary artery calcification. 4. Benign calcified granulomas disease. IMPRESSION: 1. No acute abnormality. 2. Cholelithiasis. Head CT 04/09/22 07:16 IMPRESSION: 1. Mild presumed small vessel ischemic disease of indeterminate age. 2. No acute intracranial abnormality. Head/Neck CTA 04/09/22 09:33 IMPRESSION: No large vessel stenosis or occlusion. IMPRESSION: 1. No evidence of vessel dissection, significant stenosis or occlusion. 2. Scattered locules of subcutaneous emphysema are seen, increased from earlier the same day but of uncertain etiology. REFERENCES: NASCET CRITERIA. The degree of internal carotid artery stenosis is based on NASCET criteria. Normal is no stenosis. Mild is less than 50% stenosis. Moderate is 50-69% stenosis. Severe is 70% to 99% stenosis. Total occlusion is no detectable patent lumen. Venous Duplex 04/09/22 11:22 IMPRESSION: No evidence of deep venous thrombosis. Chest X-Ray 04/11/22 06:00 IMPRESSION: 1. Low lung volumes are present, accentuating cardiac size and pulmonary markings. 2. Bilateral pulmonary opacities are again noted with the left-sided opacities showing interval improvement. Laboratory Results WBC 13.4 10^3/uL (4.0-10.0) H 04/13/22 04:56 RBC 5.63 10^6/uL (4.1-5.3) H 04/13/22 04:56 Hgb 16.9 g/dL (11.7-16.6) H 04/13/22 04:56 Hct 51.1 % (42.0-52.0) 04/13/22 04:56 MCV 90.8 fl (80-94) 04/13/22 04:56 MCH 30.0 pg (28.0-34.0) 04/13/22 04:56 MCHC 33.1 g/dL (30.0-36.0) 04/13/22 04:56 RDW 13.8 % (12.1-15.1) 04/13/22 04:56 Plt Count 188 10^3/cmm (130-400) 04/13/22 04:56 MPV 10.0 fL (7.4-10.4) 04/13/22 04:56 Neut % (Auto) 74.2 % 04/13/22 04:56 Lymph % (Auto) 10.8 % 04/13/22 04:56 [place] % (Auto) 13.5 % 04/13/22 04:56 Eos % (Auto) 0.7 % 04/13/22 04:56 Baso % (Auto) 0.2 % 04/13/22 04:56 Neut # (Auto) 9.96 10^3/uL (1.8-7.7) H 04/13/22 04:56 Lymph # (Auto) 1.5 10^3/uL (0.8-4.8) 04/13/22 04:56 Redwood # (Auto) 1.8 10^3/uL (0.2-0.9) H 04/13/22 04:56 Eos # (Auto) 0.1 10^3/uL (0.0-0.8) 04/13/22 04:56 Baso # (Auto) 0.0 10^3/uL (0.0-0.1) 04/13/22 04:56 Nucleated RBC % (auto) 0 % 04/13/22 04:56 Nucleated RBCs # 0.0 /100WBC 04/13/22 04:56 PT 14.00 SECONDS (12.1-14.9) 04/12/22 03:33 INR 1.05 (0.8-1.2) 04/12/22 03:33 APTT 38.7 SECONDS (23.9-36.7) H 04/10/22 19:06 Specimen Type Arterial 04/12/22 04:28 Sample Site Radial, right 04/12/22 04:28 ABG pH 7.49 (7.35-7.45) H 04/12/22 04:28 ABG pCO2 50.5 mmHg (35-45) H 04/12/22 04:28 ABG pO2 71.6 mmHg (80.0-100.0) L 04/12/22 04:28 ABG HCO3 38.8 mmol/L (22-26) H 04/12/22 04:28 ABG O2 Saturation 99.2 04/09/22 12:46 ABG Base Excess 12.9 mmol/L (-2.0-2.0) H 04/12/22 04:28 Saeed Test Pos 04/12/22 04:28 A-a O2 Gradient 24.8 mmHg (5-10) H 04/09/22 12:46 Hematocrit 53.3 % (42-52) H 04/12/22 04:28 Hgb O2 Saturation 97.5 % (95-100) 04/09/22 12:46 Carboxyhemoglobin 0.8 %THgb (0.4-20.1) 04/09/22 12:46 Methemoglobin 0.9 % (0.4-1.5) 04/09/22 12:46 Total Hemoglobin 16.1 g/dL (14-18) 04/09/22 12:46 Sodium 138.0 mmol/L (131-143) 04/09/22 12:46 Potassium 4.1 mmol/L (3.5-5.0) 04/09/22 12:46 Glucose 108.0 mg/dL (70-115) 04/09/22 12:46 Ionized Calcium 1.2 mmol/L (1.1-1.4) 04/09/22 12:46 Respiration Rate 14.0 % 04/09/22 07:27 O2 Delivery Device Bipap 04/12/22 04:28 Vent Mode Ac 04/09/22 07:27 FiO2 40.0 % 04/12/22 04:28 Tidal Volume 0.55 04/10/22 04:00 PEEP 8.0 cmH20 04/10/22 04:00 Specimen Drawn By Henna 04/09/22 07:27 [place] Burner Operator RONNIE Lewis 04/12/22 04:28 Crit Value Read Back Patmi 04/09/22 07:27 Sodium 140 mmol/L (136-145) 04/13/22 04:56 Potassium 3.4 mmol/L (3.5-5.1) L 04/13/22 04:56 Chloride 95 mmol/L (98-107) L 04/13/22 04:56 Carbon Dioxide 36 mmol/L (22-29) H 04/13/22 04:56 Anion Gap 12.4 (5-19) 04/13/22 04:56 BUN 29 mg/dL (8-23) H 04/13/22 04:56 Creatinine 0.8 mg/dL (0.7-1.2) 04/13/22 04:56 GFR Calculation 95.8 mL/min (90-130) 04/13/22 04:56 Glucose 104 mg/dL (65-115) 04/13/22 04:56 POC Glucose 106 mg/dL (70-110) 04/12/22 23:29 Estimat Average Glucose 123 04/09/22 07:10 Hemoglobin A1c 5.9 % (4.0-6.0) 04/09/22 07:10 Calculated Osmolality 296 mOsm/kg (285-295) H 04/13/22 04:56 Lactic Acid 1.2 mmol/L (0.5-2.2) 04/10/22 01:40 Lactate 1.0 mmol/L (0.5-2.2) 04/12/22 03:33 Calcium 9.4 mg/dL (8.5-10.5) 04/13/22 04:56 Phosphorus 4.9 mg/dL (2.5-4.5) H 04/13/22 04:56 Magnesium 1.9 mg/dL (1.7-2.3) 04/13/22 04:56 Total Bilirubin 0.9 mg/dL (0.15-1.2) 04/13/22 04:56 AST 75 U/L (0-40) H 04/13/22 04:56 ALT 42 U/L (0-41) H 04/13/22 04:56 Alkaline Phosphatase 60 IU/L (40-130) 04/13/22 04:56 Ammonia 39 umol/L (16-60) 04/10/22 01:40 Creatine Kinase 1490 U/L (39-308) H* 04/12/22 03:33 Troponin T Baseline 45 ng/L (0-15) H 04/09/22 07:10 Troponin T 120 Minute 139.0 ng/L (0-15) H 04/09/22 10:24 Delta Troponin T 94.0 ABS# (0-10) H* 04/09/22 10:24 Troponin T Hi Sens 6Hr 120.0 ng/L (0-15) H 04/09/22 13:00 Troponin T Hi Sens 6Hr Delta 75.0 ng/L (0-12) H* 04/09/22 13:00 C-Reactive Protein 74.1 mg/L (0.0-4.9) H 04/12/22 03:33 NT-Pro-B Natriuret Pep 98 pg/mL (0-125) 04/12/22 03:33 Total Protein 7.4 g/dL (6.6-8.7) 04/13/22 04:56 Albumin 3.6 g/dL (3.5-5.2) 04/13/22 04:56 Globulin 3.8 g/dL (1.3-4.6) 04/13/22 04:56 Triglycerides 68 mg/dL (0-150) 04/10/22 01:40 Cholesterol 120 mg/dL (0-200) 04/10/22 01:40 LDL Cholesterol, Calc 56 mg/dL (50-129) 04/10/22 01:40 HDL Cholesterol 50 mg/dL (60-100) L 04/10/22 01:40 LDL/HDL Ratio 1.12 RATIO (0.00-3.22) 04/10/22 01:40 Cholesterol/HDL Ratio 2.40 mg/dL (1.0-5.00) 04/10/22 01:40 Lipase 27 U/L (13-60) 04/09/22 07:10 Procalcitonin 0.10 ng/mL (0-0.5) 04/12/22 03:33 TSH 6.62 uIU/mL (0.27-4.20) H 04/09/22 07:10 Free T4 1.07 ng/dL (0.82-1.77) 04/09/22 07:10 Urine Color Yellow (Yellow) 04/09/22 09:03 Urine Appearance Hazy (CLEAR) A 04/09/22 09:03 Urine pH 5 (5-7) 04/09/22 09:03 Ur Specific [place] 1.025 (1.005-1.030) 04/09/22 09:03 Urine Protein 3+ (Negative) H 04/09/22 09:03 Urine Glucose (UA) Norm (Normal) 04/09/22 09:03 Urine Ketones Negative (Negative) 04/09/22 09:03 Urine Blood 2+ (Negative) H 04/09/22 09:03 Urine Nitrate Negative (Negative) 04/09/22 09:03 Urine Bilirubin Neg (Negative) 04/09/22 09:03 Urine Urobilinogen Norm mg/dL (Negative) 04/09/22 09:03 Ur Leukocyte Esterase Negative (Negative) 04/09/22 09:03 Urine RBC 5-10 /hpf (0-2) H 04/09/22 09:03 Urine WBC 5-10 /hpf (0-5) H 04/09/22 09:03 Ur Squamous Epith Cells Rare /hpf (0-5) 04/09/22 09:03 Amorphous Sediment 2+ /hpf 04/09/22 09:03 Urine Bacteria 1+ /hpf (NONE) H 04/09/22 09:03 Coarse Granular Casts 15-25 /lpf H 04/09/22 09:03 Salicylates < 0.3 mg/dL (3-10) L 04/09/22 07:10 Urine Opiates Screen Negative ng/mL (Negative) 04/09/22 09:03 Acetaminophen < 5.0 ug/mL (10-30) L 04/09/22 07:10 Ur Barbiturates Screen Negative ng/mL (Negative) 04/09/22 09:03 Ur Phencyclidine Scrn Negative ng/mL (Negative) 04/09/22 09:03 Ur Amphetamines Screen Negative ng/mL (Negative) 04/09/22 09:03 U Benzodiazepines Scrn Negative ng/mL (Negative) 04/09/22 09:03 Urine Cocaine Screen Negative ng/mL (Negative) 04/09/22 09:03 U Marijuana (THC) Screen Negative ng/mL (Negative) 04/09/22 09:03 Ethyl Alcohol < 10 mg/dL (0-10) 04/09/22 07:10 SARS-CoV-2 Ag (Rapid) Negative (Negative) 04/09/22 07:36 Blood Type O Positive 04/09/22 07:34 Rho(D) Type Positive 04/09/22 07:34 Antibody Screen Negative 04/09/22 07:34 Vitals Last Vital Signs Temp 98.2 F 04/13/22 07:46 Pulse 80 04/13/22 07:57 Resp 18 04/13/22 07:57 BP 135/86 04/13/22 07:46 Pulse Ox 95 04/13/22 07:57 Discharge Plan Discharge Patient Disposition: Home Condition: Stable Prescriptions: New spironolactone 25 mg Tablet 25 mg PO Q12H 30 Days Qty: 60 0RF furosemide 40 mg Tablet 40 mg PO BID@08,16 30 Days Qty: 60 0RF fluticasone propion-salmeterol [Advair Diskus] 250-50 mcg/dose blister with device 1 inh inhalation BID Qty: 60 0RF aspirin 81 mg Tablet,Delayed Release (Dr/Ec) 81 mg PO DAILY 30 Days Qty: 30 0RF atorvastatin 40 mg Tablet 40 mg PO BEDTIME 30 Days Qty: 30 0RF prednisone 20 mg Tablet 40 mg PO DAILY 2 Days Qty: 4 0RF potassium chloride [Klor-Con M20] 20 mEq tablet,ER particles/crystals 20 meq PO BID 30 Days Qty: 60 0RF albuterol sulfate [ProAir HFA] 90 mcg/actuation HFA aerosol inhaler 1 inh inhalation Q6H PRN (Reason: shortness of breath or wheezing) Qty: 8.5 0RF Continued tamsulosin 0.4 mg capsule 0.4 mg PO DAILY 0RF ascorbate calcium (vitamin C) 500 mg tablet 500 mg PO Q2D 0RF timolol 0.5 % drops 1 drop ophthalmic (eye) BID 0RF Rx Instructions: both eyes latanoprost 0.005 % drops 1 drop ophthalmic (eye) DAILY 0RF Rx Instructions: both eyes Metamucil (sugar) Powder 1 tbsp PO DAILY 0RF Complete Multivitamin Tablet 1 tab PO DAILY 0RF glucosamine-chondroitin 900 mg tablet 900 mg PO DAILY 0RF Discontinued furosemide 20 mg tablet 40 mg PO DAILY 0RF potassium chloride 10 mEq capsule, extended release 20 meq PO DAILY 0RF Discharge Orders: Discharge Order (Routine); Ordered 04/13/22 Ordered By: Issac Lake Referrals: Aisha Pagan MD [Primary Care Provider] - Datar,Tucker Michel MD [Physician] - 1 week (mendez ) Skip Albarran MD [Physician] - 1 month Discharge Diet: Cardiac Discharge Activity: Resume usual activity Patient Instructions: Opioid Safety Activity Restrictions/Additional Instructions: - Please limit your fluid intake to 2 L a day -Take Lasix 40 mg twice daily with potassium replacement -Please follow-up with primary care for blood pressure check, in 1 week -Follow-up with pulmonary, for sleep study, and consideration of sleep machine -Please use albuterol and Advair as prescribed -If you have any worsening shortness of breath go to the emergency room Discharge Attestations Time Spent in Discharge Care*: less than 30 min Quality Metrics Clinical Quality Measures [ No reported AMI, CVA or VTE this stay] Coding Level of Care Code Acute Chg FW DC note Diagnoses Acute respiratory failure with hypoxia J96.01 Altered mental status R41.82 Hypercarbia R06.89 Non-ST elevation MD (NSTEMI) I21.4 Bilateral atelectasis J98.11
[2022-04-13 11:32] LABS: Glucose Point of Care 116 mg/dL (70-110)
== END 2022-04-13 16:30 | disposition home or self-care (01) | DRG 208 ==
LOC: ER 07:22 → ICU 09:11 → MEDSURG 04-11 18:13
PROVIDERS: Student in an Organized Health Care Education/Training Program; Admitting Provider Family Medicine; Emergency Provider Emergency Medicine; PCP Family Medicine; Visit Provider Family Medicine
DX: J96.02 Acute respiratory failure with hypercapnia (principal); I21.4 Non-ST elevation (NSTEMI) myocardial infarction; J98.11 Atelectasis; E66.2 Morbid (severe) obesity with alveolar hypoventilation; Z68.42 Body mass index [BMI] 45.0-49.9, adult; J96.01 Acute respiratory failure with hypoxia; E87.70 Fluid overload, unspecified
CPT/HCPCS: 31500; 36415; 36416; 36600; 51702; 70450; 70496; 70498; 71045; 71275; 72125; 74177; 80051; 80053; 80061; 80306; 80307; 81001; 82140; 82330; 82550; 82803; 82805; 82962; 83036; 83605; 83690; 83735; 83880; 84100; 84145; 84439; 84443; 84484; 85025; 85049; 85610; 85730; 86140; 86850; 86900; 87040; 87070; 87205; 87426; 87641; 92523; 92610; 93005; 93306; 93970; 94002; 94003; 94640; 94660; 94664; 94799; 96365; 96366; 96367; 96368; 96372; 97110; 97116; 97161; 97166; 97530; 97535; 99291; 99292; A4570; C1751; C9113; J0743; J1644; J1650; J1940; J2250; J2704; J2930; J3010; J3475; J3480; J3490; J7040; J7050; J7512; J7608; Q9967

== ENCOUNTER → 2022-04-20 08:02 | Outpatient (BNVA) | payer MEDICARE, SELFPAY | PROVIDERS: PCP Family Medicine; Visit Provider Internal Medicine Pulmonary Disease | DX: G47.33 Obstructive sleep apnea (adult) (pediatric) (principal); E66.01 Morbid (severe) obesity due to excess calories; E66.9 Obesity, unspecified; G47.19 Other hypersomnia; I50.9 Heart failure, unspecified; J96.02 Acute respiratory failure with hypercapnia; Z09 Encounter for follow-up examination after completed treatment for conditions other than malignant neoplasm; Z68.41 Body mass index [BMI] 40.0-44.9, adult | CPT/HCPCS: 99204 ==

== ENCOUNTER 2022-04-27 20:00 | Outpatient (CLI) | payer MEDICARE, SELFPAY | END 2022-04-27 20:01 | disposition home or self-care (01) | LOC: SLEEP 04-28 07:35 | PROVIDERS: PCP Family Medicine; Visit Provider Internal Medicine Pulmonary Disease | DX: G47.19 Other hypersomnia (principal); E66.9 Obesity, unspecified; R06.89 Other abnormalities of breathing; G47.33 Obstructive sleep apnea (adult) (pediatric) | CPT/HCPCS: 95810 ==

== ENCOUNTER 2022-05-16 20:00 | Outpatient (CLI) | payer MEDICARE, SELFPAY | END 2022-05-16 20:01 | disposition home or self-care (01) | LOC: SLEEP 05-17 07:35 | PROVIDERS: PCP Family Medicine; Visit Provider Internal Medicine Pulmonary Disease | DX: G47.33 Obstructive sleep apnea (adult) (pediatric) (principal) | CPT/HCPCS: 95811 ==

== ENCOUNTER 2022-05-26 07:11 | Outpatient (CLI) | payer MEDICARE, SELFPAY ==
[2022-05-26 07:26] VITALS: BMI 42.9
--- NOTE | 2022-05-26 07:27 | NMCV_ITS ---
NM tru perf SPECT r/s* [id number] Davion Marley Age: 67 Gender: M : 1955 Exam Date: 05/26/2022 07:27 Ordering Phys: Tucker Bloom MD Technologist: JESSICA Perry Exam Location: [facility] Indications: OBSTRUCTIVE SLEEP APNEA, CHF STRESS TEST Please [facility] IMAGE PROTOCOL Rest/Stress 1 Lexiscan Day Radiopharmaceutical Dose (mCi) Administration Site Administered by Rest: Tc-99m 11.0 IV JESSICA Perry Sestamibi Stress:Tc-99m 33.0 IV JESSICA Connors Sestamibi Rest: 26-May-2022 60 Discovery 630 Stress: 26-May-2022 30 Discovery 630 0.4mg Lexiscan. Supine position only as patient was unable to lay prone. SPECT RESULTS Technical Quality: Good Raw Data Analysis: Normal Image Corrections: No attenuation or motion correction applied Summed Stress Score: 2 Summed Rest Score: 0 Summed Difference Score: 2 PERFUSION FINDINGS There is a small in size, reversible perfusion defect in the anterolateral wall. This is consistent with ischemia in this territory FUNCTIONAL RESULTS (calculated via Gated SPECT) Stress Image LV EF (%): 69 Stress EDV (mL):124 TID: 0.89 Stress ESV (mL):39 FUNCTIONAL FINDINGS: There is normal left ventricular systolic function. IMPRESSIONS 1. Abnormal myocardial perfusion imaging with small sized area of ischemia seen in the anterolateral wall 2. LV systolic function is normal Rohit Castillo MD (Electronically Signed) Final Date: 29 May 2022 11:42 S
--- NOTE | 2022-05-26 07:27 | ECG_ITS ---
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 Interpretive Statements NAME OF STUDY: LEXISCAN SESTAMIBI STRESS TEST INDICATION: [Dyspnea on Exertion] Procedure: At the baseline, the blood pressure was 139/98 mmHg with a heart rate of 65 bpm. The electrocardiogram showed normal sinus rhythm, normal axis with normal ST and T's. The Lexiscan was infused over a period of 20 seconds. A total of 0.4 mg of Lexiscan was infused. The stress phase was continued for a total of 5 minutes. Heart rate was at the end of stress phase was 74 bpm and a blood pressure of 134/75 mmHg. The EKG at the peak infusion revealed since normal sinus rhythm with no significant ST-T wave changes. Sestamibi was injected 20 seconds after the Lexiscan infusion. Blood pressure at the end of recovery phase was 142/75 mmHg with a heart rate of 75 bpm. Conclusion: 1. Normal EKG response to Lexiscan infusion 2. No Lexiscan induced chest pain or cardiac arrhythmia. 3. Normal blood pressure and heart rate response. 4. Sestamibi/sestamibi perfusion scan pending; see separate report. Electronically Signed On 05-29-2022 0:22:43 CDT by Rohit Castillo M.D. [id number]
[2022-05-26] MEDS: regadenoson 0.4 Mg/5 ml Syringe IVP (09:55)
[2022-05-26 10:17] VITALS: BP 138/65; PULSE 65
== END 2022-05-26 07:12 | disposition home or self-care (01) ==
LOC: CDL 07:17
PROVIDERS: PCP Family Medicine; Visit Provider Internal Medicine Pulmonary Disease
DX: R06.09 Other forms of dyspnea (principal); G47.33 Obstructive sleep apnea (adult) (pediatric); I50.9 Heart failure, unspecified
CPT/HCPCS: 78452; 93017; A9500; J2785

== ENCOUNTER 2022-06-06 12:26 | Outpatient (CLI) | payer MEDICARE, SELFPAY ==
--- NOTE | 2022-06-06 13:35 | PFTS_ITS ---
Date of Study:06/06/22 Date of Dictation: MECHANICS: Forced vital capacity (FVC) is reduced. Forced expiratory volume in one second (FEV1) is reduced. FEV1/FVC is normal. FLOW VOLUME LOOP: Narrow . LUNG VOLUMES: Total lung capacity (TLC) is increased. Residual volume (RV) is increased. DIFFUSING CAPACITY FOR CARBON MONOXIDE: Normal. INTERPRETATION: The prebronchodilator spirometry is consistent with moderately severe restriction. No postbronchodilator spirometry was performed. Lung volumes are consistent with hyperinflation and air trapping. The constellation of the spirometry and the lung volume measurement is consistent with nonspecific ventilatory limitations. Gas exchange (DLCO) is normal. MTDD
[2022-06-06 13:36] VITALS: O2SAT 91; O2SAT 92
== END 2022-06-06 12:27 | disposition home or self-care (01) ==
LOC: RT 12:27
PROVIDERS: PCP Family Medicine; Visit Provider Internal Medicine Pulmonary Disease
DX: G47.33 Obstructive sleep apnea (adult) (pediatric) (principal)
CPT/HCPCS: 94010; 94726; 94729; 94760

== ENCOUNTER → 2022-06-07 12:18 | Outpatient (BNVA) | payer MEDICARE, SELFPAY | PROVIDERS: PCP Family Medicine; Visit Provider Internal Medicine | DX: I50.9 Heart failure, unspecified (principal); R94.39 Abnormal result of other cardiovascular function study | CPT/HCPCS: 36415; 80048; 83880; 93005; 99204 ==

== ENCOUNTER → 2022-06-08 12:46 | Outpatient (BNVA) | payer MEDICARE, SELFPAY | PROVIDERS: PCP Family Medicine; Visit Provider Internal Medicine Pulmonary Disease | DX: J96.02 Acute respiratory failure with hypercapnia (principal); I50.9 Heart failure, unspecified; Z68.41 Body mass index [BMI] 40.0-44.9, adult; E66.2 Morbid (severe) obesity with alveolar hypoventilation; Z99.81 Dependence on supplemental oxygen | CPT/HCPCS: 99214 ==

== ENCOUNTER → 2022-10-06 09:30 | Outpatient (BNVA) | payer MEDICARE, SELFPAY | PROVIDERS: PCP Family Medicine; Visit Provider Internal Medicine | DX: I50.9 Heart failure, unspecified (principal); R94.39 Abnormal result of other cardiovascular function study | CPT/HCPCS: 99214 ==

== ENCOUNTER 2022-10-23 07:26 | Outpatient (CLI) | payer MEDICARE, SELFPAY ==
--- NOTE | 2022-10-23 | ECG_ITS ---
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 Interpretive Statements NAME OF STUDY: LEXISCAN SESTAMIBI STRESS TEST INDICATION: [dunlap, ] Procedure: At the baseline, the blood pressure was 127/82 mmHg with a heart rate of 66 bpm. The electrocardiogram showed normal sinus rhythm, normal axis with normal ST and T's. The Lexiscan was infused over a period of 20 seconds. A total of 0.4 mg of Lexiscan was infused. The stress phase was continued for a total of 5 minutes. Heart rate was at the end of stress phase was 77 bpm and a blood pressure of 149/89 mmHg. The EKG at the peak infusion revealed normal sinus rhythm with no significant ST-T wave changes and occasional PVCs. Sestamibi was injected 20 seconds after the Lexiscan infusion. Blood pressure at the end of recovery phase was 154/90 mmHg with a heart rate of 70 bpm. Conclusion: 1. Normal EKG response to Lexiscan infusion 2. No Lexiscan induced chest pain or cardiac arrhythmia. 3. Normal blood pressure and heart rate response. 4. Sestamibi/sestamibi perfusion scan pending; see separate report. Electronically Signed On 11-05-2022 19:47:54 E [employer]CHITECT by Rohit Castillo M.D. [id number]
[2022-10-23 07:42] VITALS: BMI 39.9
--- NOTE | 2022-10-23 07:46 | NMCV_ITS ---
NM tru perf SPECT r/s* [id number] Davion Marley Age: 67 Gender: M : 1955 Exam Date: 10/23/2022 07:46 Ordering Phys: Tucker Bloom MD Technologist: JESSICA Perry Exam Location: [facility] Indications: OBSTRUCTIVE SLEEP APNEA STRESS TEST [facility] IMAGE PROTOCOL Rest/Stress 1 Lexiscan Day Radiopharmaceutical Dose (mCi) Administration Site Administered by Rest: Tc-99m 11.0 IV JESSICA Perry Sestamibi Stress:Tc-99m 32.6 IV JESSICA Connors Sestamibi Rest: 23-Oct-2022 60 Discovery 630 Stress: 23-Oct-2022 30 Discovery 630 0.4mg Lexiscan. Supine position only as patient was unable to lay prone. SPECT RESULTS Technical Quality: Excellent Raw Data Analysis: Normal Image Corrections: No attenuation or motion correction applied Summed Stress Score: 0 Summed Rest Score: 0 Summed Difference Score: 0 PERFUSION FINDINGS SPECT images demonstrate homogeneous tracer distribution throughout the myocardium. FUNCTIONAL RESULTS (calculated via Gated SPECT) Stress Image LV EF (%): 69 Stress EDV (mL):146 TID: 1.01 Stress ESV (mL):45 FUNCTIONAL FINDINGS: There is normal left ventricular systolic function. IMPRESSIONS 1. Normal myocardial perfusion imaging with no evidence of ischemia 2. LV systolic function is normal Rohit Castillo MD (Electronically Signed) Final Date: 23 October 2022 11:04 S
[2022-10-23] MEDS: regadenoson 0.4 Mg/5 ml Syringe IVP (09:14)
[2022-10-23 09:27] VITALS: BP 154/90; PULSE 74
== END 2022-10-23 07:27 | disposition home or self-care (01) ==
LOC: CDL 07:28
PROVIDERS: PCP Family Medicine; Visit Provider Internal Medicine Pulmonary Disease
DX: G47.33 Obstructive sleep apnea (adult) (pediatric) (principal)
CPT/HCPCS: 36415; 78452; 93017; 96374; A9500; J2785

== ENCOUNTER → 2022-11-09 13:21 | Outpatient (BNVA) | payer MEDICARE, SELFPAY | PROVIDERS: PCP Family Medicine; Visit Provider Internal Medicine Pulmonary Disease | DX: J96.02 Acute respiratory failure with hypercapnia (principal); I50.9 Heart failure, unspecified; Z68.41 Body mass index [BMI] 40.0-44.9, adult; E66.2 Morbid (severe) obesity with alveolar hypoventilation | CPT/HCPCS: 99214 ==

== ENCOUNTER → 2023-11-13 14:14 | Outpatient (BNVA) | payer MEDICARE, SELFPAY | PROVIDERS: PCP Family Medicine; Visit Provider Internal Medicine | DX: I50.9 Heart failure, unspecified (principal); R94.39 Abnormal result of other cardiovascular function study | CPT/HCPCS: 99214 ==

== ENCOUNTER → 2024-10-14 09:34 | Outpatient (BNVA) | payer MEDICARE, SELFPAY | PROVIDERS: PCP Family Medicine; Visit Provider Anesthesiology Pain Medicine | DX: M79.18 Myalgia, other site (principal); R03.0 Elevated blood-pressure reading, without diagnosis of hypertension; M25.552 Pain in left hip | CPT/HCPCS: 20553; 99214; J1010; J3490 ==

== ENCOUNTER → 2024-11-14 09:17 | Outpatient (BNVA) | payer MEDICARE, SELFPAY | PROVIDERS: PCP Family Medicine; Visit Provider Internal Medicine | DX: I50.9 Heart failure, unspecified (principal); R94.39 Abnormal result of other cardiovascular function study | CPT/HCPCS: 99213 ==

== ENCOUNTER → 2025-01-12 11:06 | Outpatient (BNVA) | payer MEDICARE, SELFPAY | PROVIDERS: PCP Family Medicine; Visit Provider Anesthesiology Pain Medicine | DX: M54.50 Low back pain, unspecified (principal); M54.9 Dorsalgia, unspecified; M25.552 Pain in left hip; R03.0 Elevated blood-pressure reading, without diagnosis of hypertension | CPT/HCPCS: 72110; 99214 ==

== ENCOUNTER 2025-01-15 06:56 | Outpatient (CLI) | payer MEDICARE, SELFPAY ==
--- NOTE | 2025-01-15 07:15 | MR_ITS ---
WS: [id number] MRI LUMBAR SPINE NONCONTRAST HISTORY: M54.16 - Radiculopathy, lumbar region COMPARISON: Radiograph 01/12/2025 TECHNIQUE: Sagittal and axial multisequence imaging is submitted. Degenerative scoliosis of the lumbar spine. Moderate degenerative disc disease throughout the lumbar spine. L4 anterolisthesis by 7 mm. Several Schmorl's nodes are noted within the lumbar spine. There is no acute marrow edema or fracture. Increase in thoracic kyphosis. Mild anterior wedging of T6, T7, T8 and T9. Conus terminates normally at L1-2 disc level. T12-L1: Annular disc bulging with large anterior osteophytes. Small osteophytes posteriorly. Mild facet arthritis. Mild bilateral subarticular recess and foraminal stenosis. L1-L2: Mild annular disc bulging with facet arthritis. Small RIGHT foraminal disc protrusion. Mild bilateral foraminal stenosis. L2-L3: Diffuse annular disc bulging with osteophytic ridging, moderate facet and ligamentum flavum hypertrophy. There is disc contacting the traversing L3 nerve roots. Moderate facet arthritis. Disc bulging extends into the foramina. Mild to moderate central, subarticular recess and foraminal stenosis. L3-L4: Diffuse annular disc bulging with severe facet joint arthritis and mild ligamentum flavum hypertrophy. Bilateral foraminal disc protrusions. Moderate central, subarticular recess and RIGHT foraminal stenosis. Severe LEFT foraminal stenosis. L4-L5: Unroofing of the disc due to anterolisthesis of L4. Severe central stenosis with severe facet and ligamentum flavum hypertrophy. There is contact on the ventral thecal sac and subarticular recesses including the traversing L5 nerve roots. Bilateral foraminal disc protrusions. Severe central, subarticular recess and foraminal stenosis. L5-S1: Diffuse annular disc bulging with contact on the S1 nerve roots, LEFT greater than RIGHT. There is probably a tiny LEFT paracentral disc protrusion contacting S1. Osteophytic ridging and disc bulging resulting in moderate to severe bilateral foraminal stenosis. Moderate central and subarticular recess stenosis. Increased T2 signal bilaterally in the sacrum. There is also increased T1 signal in this location suggesting this may be fatty replacement. No marrow edema on the STIR sequence. MR/MR lumbar spine wo con* [id number] IMPRESSION: 1. Advanced degenerative lumbar spondylosis with degenerative scoliosis. 2. Stenosis noted at multiple levels within the lumbar spine. Stenosis is due to combination of scoliosis, disc with disc protrusions, facet and ligamentum f lavum hypertrophy. 3. L4-5: L4 anterolisthesis by 7 mm. Severe central, subarticular recess and f oraminal stenosis is multifactorial as described above. There is significant di sc contact and osteophyte contact on L4 and L5. 4. L3-4: Moderate central, subarticular recess and RIGHT foraminal stenosis. S evere LEFT foraminal stenosis. 5. L5-S1: Moderate to severe bilateral foraminal stenosis with moderate centra l and subarticular recess stenosis. Slightly greater contact on the LEFT S1 ner ve root by a tiny disc protrusion. 6. L2-3: Mild to moderate central, bilateral subarticular recess and foraminal stenosis. 7. L1-2: Mild foraminal stenosis. 8. Chronic anterior wedging of T6, T7, T8 and T9. Increase in thoracic kyphosi s.
== END 2025-01-15 06:57 | disposition home or self-care (01) ==
PROVIDERS: PCP Family Medicine; Visit Provider Anesthesiology Pain Medicine
DX: M54.16 Radiculopathy, lumbar region (principal); M47.896 Other spondylosis, lumbar region; M41.86 Other forms of scoliosis, lumbar region; M48.061 Spinal stenosis, lumbar region without neurogenic claudication; M51.26 Other intervertebral disc displacement, lumbar region; M24.28 Disorder of ligament, vertebrae; M43.16 Spondylolisthesis, lumbar region; M25.78 Osteophyte, vertebrae; M48.07 Spinal stenosis, lumbosacral region; M48.54XD Collapsed vertebra, not elsewhere classified, thoracic region, subsequent encounter for fracture with routine healing; M51.369 Other intervertebral disc degeneration, lumbar region without mention of lumbar back pain or lower extremity pain; M51.46 Schmorl's nodes, lumbar region; M51.379 Other intervertebral disc degeneration, lumbosacral region without mention of lumbar back pain or lower extremity pain
CPT/HCPCS: 72148

== ENCOUNTER → 2025-01-27 10:09 | Outpatient (BNVA) | payer MEDICARE, SELFPAY | PROVIDERS: PCP Family Medicine; Visit Provider Anesthesiology Pain Medicine | DX: M54.9 Dorsalgia, unspecified (principal); R03.0 Elevated blood-pressure reading, without diagnosis of hypertension; M25.552 Pain in left hip | CPT/HCPCS: 99214 ==

== ENCOUNTER → 2025-02-04 09:34 | Outpatient (BNVA) | payer MEDICARE, SELFPAY | PROVIDERS: PCP Family Medicine; Visit Provider Anesthesiology Pain Medicine | DX: M54.16 Radiculopathy, lumbar region (principal); M54.9 Dorsalgia, unspecified | CPT/HCPCS: 64483; 64484; J1100; J3490; J9999 ==

== ENCOUNTER → 2025-02-23 08:42 | Outpatient (BNVA) | payer MEDICARE, SELFPAY | PROVIDERS: PCP Family Medicine; Visit Provider Anesthesiology Pain Medicine | DX: M54.9 Dorsalgia, unspecified (principal); M25.552 Pain in left hip; R03.0 Elevated blood-pressure reading, without diagnosis of hypertension | CPT/HCPCS: 99214 ==

== ENCOUNTER → 2025-06-02 10:27 | Outpatient (BNVA) | payer MEDICARE, SELFPAY | PROVIDERS: PCP Family Medicine; Visit Provider Anesthesiology Pain Medicine | DX: M54.9 Dorsalgia, unspecified (principal); M25.559 Pain in unspecified hip; R03.0 Elevated blood-pressure reading, without diagnosis of hypertension | CPT/HCPCS: 99214 ==

== ENCOUNTER → 2025-08-26 08:59 | Outpatient (BNVA) | payer MEDICARE, SELFPAY | PROVIDERS: PCP Family Medicine; Visit Provider Anesthesiology Pain Medicine | DX: M79.18 Myalgia, other site (principal); M54.9 Dorsalgia, unspecified; M25.559 Pain in unspecified hip; R03.0 Elevated blood-pressure reading, without diagnosis of hypertension | CPT/HCPCS: 20553; 99214; J1010; J3490 ==

== ENCOUNTER → 2025-09-21 08:38 | Outpatient (BNVA) | payer MEDICARE, SELFPAY | PROVIDERS: PCP Family Medicine; Visit Provider Anesthesiology Pain Medicine | DX: M54.9 Dorsalgia, unspecified (principal); M25.559 Pain in unspecified hip; R03.0 Elevated blood-pressure reading, without diagnosis of hypertension | CPT/HCPCS: 99214 ==